=== PATIENT | female | born 1930 | race Caucasian/White ===

== ENCOUNTER 2017-10-02 19:02 | Emergency (ER) | payer MEDICARE, BC ==
--- NOTE | 2017-10-02 20:15 | EDM.PDOC ---
ED HPI GENERAL MEDICAL PROBLEM - General Chief Complaint: Head Injury Stated Complaint: fall high blood pressure Time Seen by Provider: 10/02/17 19:46 Source of Information: Reports: Patient, Family, Senior Living Records History Limitations: Reports: Altered Mental Status - History of Present Illness INITIAL COMMENTS - FREE TEXT/NARRATIVE: Patient is a 87-year-old female presents the ED with family with concerns of falling earlier this afternoon hitting her head. This occurred approximately 1: 30. Patient was getting out of a chair and fell forward. Unsure if any LOC since it was not witnessed. Patient does have a history of Alzheimer's dementia and is acting appropriate per family. Patient denies any headache at this point. Family is concerned about the hematoma to the forehead thus prompting evaluation in ED. Again patient has been acting appropriately. She is on no anticoagulants. Family is also concerned of elevated blood pressure. Readings obtained at the long-term where higher then normally. She has been ambulating normally with no issues since fall. - Related Data Allergies Allergy/AdvReac Type Severity Reaction Status Date / Time No Known Allergies Allergy Verified 10/02/17 19:28 Home Meds: Home Meds Calcium Carb/Vitamin D3/Vit K1 [Viactiv Soft Chew Tablet] 1 each PO BID [History] Fish Oil/[place]-3 Fatty Acids [Fish Oil] 1,000 each PO BID 12/28/13 [History] Glimepiride 4 mg PO DAILY 12/28/13 [History] Lutein/Minerals/Vit A,C & E [Ocuvite] 1 tab PO DAILY 12/28/13 [History] Pravastatin [Pravachol] 20 mg PO BEDTIME 12/28/13 [History] Triamterene/Hydrochlorothiazid [Triamterene-HCTZ 37.5-25 MG] 0.5 tab PO DAILY [History] Valsartan/Hydrochlorothiazide [Diovan HCTZ 160-25 MG] 160 mg PO DAILY 12/28/13 [ History] metFORMIN [Glucophage] 1,000 mg PO BID 12/28/13 [History] Acetaminophen [Tylenol] 650 mg PO BID 09/09/14 [History] Aspirin [Ecotrin] 81 mg PO DAILY 09/09/14 [History] Metoprolol Succinate [Toprol Xl] 100 mg PO DAILY 01/26/15 [History] Multivitamin [Multi Vitamin Daily] 1 tab PO DAILY 09/09/14 [History] Insulin Glarg,Human.Rec.Analog [LantUS Solostar] 6 units SUBCUT BEDTIME [History] Acetaminophen 650 mg PO DAILY PRN 06/24/16 [History] Linagliptin [Tradjenta] 5 mg PO DAILY 06/24/16 [History] Lactobacillus Acidophilus [Acidophilus] 1 tab PO TID 10/02/17 [History] Menthol/Zinc Oxide [Calmoseptine] 1 applic TOP BID 10/02/17 [History] QUEtiapine Fumarate [Seroquel] 50 mg PO BID 10/02/17 [History] Vancomycin 125 mg PO TID 10/02/17 [History] Past Medical History HEENT History: Reports: Glaucoma, Other (See Below) Other HEENT History: dry eyes Cardiovascular History: Reports: High Cholesterol, Hypertension Gastrointestinal History: Reports: Other (See Below) Other Gastrointestinal History: c diff Musculoskeletal History: Reports: Osteoporosis Neurological History: Reports: CVA, TIA Psychiatric History: Reports: Alzheimers Disease, Dementia, Depression Endocrine/Metabolic History: Reports: Diabetes, Type II Social & Family History - Tobacco Use Smoking Status *Q: Former Smoker Used Tobacco, but Quit: Yes Month Tobacco Last Used: 40 years Second Hand Smoke Exposure: No - Caffeine Use Caffeine Use: Reports: Coffee - Alcohol Use Days Per Week of Alcohol Use: 0 - Recreational Drug Use Recreational Drug Use: No ED ROS GENERAL - Review of Systems Review Of Systems: See Below Respiratory: Reports: No Symptoms Cardiovascular: Reports: No Symptoms GI/Abdominal: Reports: No Symptoms Musculoskeletal: Reports: No Symptoms Neurological: Reports: No Symptoms Psychiatric: Reports: Agitation (normal. ), Confusion (normal) ED EXAM, HEAD INJURY - Physical Exam Exam: See Below Exam Limited By: No Limitations General Appearance: Alert, WD/WN, No Apparent Distress Head: Facial Ecchymosis, Facial Swelling, Other (Hematoma noted to the forehead with no bony abnormalities noted.). No: Scalp Hematoma, Scalp Tenderness Nexus Criteria: Altered Level of Consciousness (Alzheimer's dementia patient). No: Posterior, Midline Cervical Tenderness, Focal Neurological Deficit, Painful Distraction Injuries Eyes: Bilateral Eye: EOMI, PERRL Ears: Hearing Grossly Normal Nose: Normal Inspection Throat/Mouth: Normal Voice, No Airway Compromise, Other (Moist oromucosa) Neck: Non-Tender, Full Range of Motion, Normal Alignment, Normal Inspection Respiratory: No Respiratory Distress, Lungs Clear, Normal Breath Sounds, No Accessory Muscle Use, Chest Non-Tender Cardiovascular: Normal Peripheral Pulses, Regular Rate, Rhythm GI/Abdominal Exam: Normal Bowel Sounds, Soft, Non-Tender, No Organomegaly, No Distention Back Exam: Normal Inspection. 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 No: Oriented x 3 (Mentation is normal for patient per family) Skin: Normal Color, Warm/Dry Course - Vital Signs Last Recorded V/S: Last Vital Signs Temp 98 F 10/02/17 19:20 Pulse 88 10/02/17 19:20 Resp 18 10/02/17 19:20 BP 184/91 H 10/02/17 19:20 Pulse Ox 99 10/02/17 19:20 - Orders/Labs/Meds Orders: Active Orders 24 hr Category Date Time Status Head wo Cont [CT] Stat Exams 10/02/17 20:03 Taken - Re-Assessments/Exams Free Text/Narrative Re-Assessment/Exam: Patients family are wishing to have an CT of the head to ensure no acute bony abnormalities. Agree with requests. Family and myself agree no labs or studies to be obtained. While blood pressure readings were being obtained patient was complaining of pain to her arm thus flexing her biceps. She would not listen with asking to relax. Blood pressure with admission to the ED is lower than it was at the long-term. It is trending downward. Family has no more concerns at this point. CT of the head impression: Forehead scalp swelling and hematoma. No radiopaque foreign body. No underlying acute calvarial fracture. No evidence for acute transcortical infarct, acute intracranial hemorrhage, or mass effect. Will discharge patient home with instructions as documented. Departure - Departure Time of Disposition: 21:28 Disposition: Home, Self-Care 01 Condition: Good Clinical Impression: Scalp hematoma Qualifiers: Encounter type: initial encounter Qualified Code(s): S00.03XA - Contusion of scalp, initial encounter - Discharge Information Instructions: Facial or Scalp Contusion, [id number], Hematoma, [id number] Referrals: Jonny Keith MD [Primary Care Provider] - Forms: ED Department Discharge Additional Instructions: As discussed CT the head did not reveal any acute bony abnormalities or intracranial abnormalities. Forehead scalp swelling and hematoma present. Treatment at this point will be symptomatic care including applying ice to the affected area as needed throughout the course today. May utilize Tylenol for any pain. Monitor for any mentation changes, seizures, nausea vomiting, or focal neurological deficits. If so please call 911 and return back to the ED. - My Orders Last 24 Hours: My Active Orders 10/02/17 20:03 Head wo Cont [CT] Stat - Assessment/Plan Last 24 Hours: My Active Orders 10/02/17 20:03 Head wo Cont [CT] Stat
[2017-10-02 22:07] VITALS: BP 156/85
--- NOTE | 2017-10-03 08:25 | CT ---
Head CT Technique: Multiple axial sections through the brain were obtained. Intravenous contrast was not utilized. Comparison: Prior head CT study of 06/24/16. Soft tissue hematoma and swelling seen within the scalp within the forehead. Findings: Ventricles along with basal cisterns and sulci over the convexities are moderately prominent. Mild diminished density is noted within the periventricular and subcortical white matter compatible with small vessel ischemic demyelination change. No evidence of intracranial hemorrhage. No midline shift or mass effect is seen. Atherosclerotic calcification is seen within the vertebral vessels and within the carotid siphon. Mucosal thickening is seen within the right maxillary sinus and ethmoid sinuses. Retention cyst is noted within the left maxillary sinus. No acute calvarial abnormality is seen. Impression: 1. Soft tissue swelling and hematoma within the frontal scalp. 2. Senescent change as described above. 3. Chronic sinus findings which are stable from prior head CT. 3. No acute intracranial abnormality is seen. No skull fracture is seen. Diagnostic code #2 I agree with preliminary report issued by [employer] ([employer] preliminary report dictated on 10/02/17, 10:11 PM Central Time)
== END 2017-10-02 22:26 | disposition home or self-care (01) ==
LOC: JD.ED 19:02
DX: S00.03XA Contusion of scalp, initial encounter (principal); E78.00 Pure hypercholesterolemia, unspecified; E11.9 Type 2 diabetes mellitus without complications; I10 Essential (primary) hypertension; G30.9 Alzheimer's disease, unspecified; F02.80 Dementia in other diseases classified elsewhere, unspecified severity, without behavioral disturbance, psychotic disturbance, mood disturbance, and anxiety; Z79.84 Long term (current) use of oral hypoglycemic drugs; Z79.899 Other long term (current) drug therapy; Z86.73 Personal history of transient ischemic attack (TIA), and cerebral infarction without residual deficits; Z87.891 Personal history of nicotine dependence; Z86.19 Personal history of other infectious and parasitic diseases; Z79.82 Long term (current) use of aspirin; W07.XXXA Fall from chair, initial encounter
CPT/HCPCS: 70450; 70450-26; 99283; 99285-25

== ENCOUNTER 2018-02-11 11:53 | Inpatient (IN) | payer MEDICARE, BC, MEDICAID ==
[2018-02-11] MEDS ORDERED: Sodium Chloride 0.9% 250 ML IV ONE (12:41)
[2018-02-11] MEDS ORDERED: Sodium Chloride 0.9% 10 ML Syringe FLUSH PRN (12:41)
[2018-02-11] MEDS ORDERED: Sodium Chloride 0.9% 1,000 ML IV SCH (12:45)
--- NOTE | 2018-02-11 12:45 | EDM.PDOC ---
ED HPI GENERAL MEDICAL PROBLEM - General Chief Complaint: Cardiovascular Problem Stated Complaint: RAPID HEART RATE Time Seen by Provider: 02/11/18 12:32 Source of Information: Reports: Patient, [facility] Records History Limitations: Reports: Other (Dementia) - History of Present Illness INITIAL COMMENTS - FREE TEXT/NARRATIVE: Patient is a 87-year-old female with history dementia who presents to the ED with concerns of a fast heart rate. She is a resident at [facility]. CODE STATUS DNR. - Related Data Allergies Allergy/AdvReac Type Severity Reaction Status Date / Time No Known Allergies Allergy Verified 10/02/17 19:28 Home Meds: Home Meds Calcium Carb/Vitamin D3/Vit K1 [Viactiv Soft Chew Tablet] 1 each PO BID [History] Fish Oil/[place]-3 Fatty Acids [Fish Oil] 1,000 each PO BID 12/28/13 [History] Glimepiride 4 mg PO DAILY 12/28/13 [History] Lutein/Minerals/Vit A,C & E [Ocuvite] 1 tab PO DAILY 12/28/13 [History] Pravastatin [Pravachol] 20 mg PO BEDTIME 12/28/13 [History] Triamterene/Hydrochlorothiazid [Triamterene-HCTZ 37.5-25 MG] 0.5 tab PO DAILY [History] Valsartan/Hydrochlorothiazide [Diovan HCTZ 160-25 MG] 160 mg PO DAILY 12/28/13 [ History] Acetaminophen [Tylenol] 650 mg PO BID 09/09/14 [History] Aspirin [Ecotrin] 162 mg PO DAILY 09/09/14 [History] Metoprolol Succinate [Toprol Xl] 100 mg PO DAILY 09/09/14 [History] Multivitamin [Multi Vitamin Daily] 1 tab PO DAILY 09/09/14 [History] Insulin Glarg,Human.Rec.Analog [LantUS Solostar] 6 units SUBCUT BEDTIME [History] Linagliptin [Tradjenta] 5 mg PO DAILY 06/24/16 [History] Lactobacillus Acidophilus [Acidophilus] 1 tab PO TID 10/02/17 [History] QUEtiapine Fumarate [Seroquel] 50 mg PO BID 10/02/17 [History] Cyanocobalamin (Vitamin B-12) [Vitamin B-12] 500 mcg PO DAILY 02/11/18 [History] metFORMIN [Glucophage XR] 1,000 mg PO BID 02/11/18 [History] traMADol [Ultram] 50 mg PO Q6H PRN 02/11/18 [History] Past Medical History HEENT History: Reports: Glaucoma, Other (See Below) Other HEENT History: dry eyes Cardiovascular History: Reports: High Cholesterol, Hypertension Gastrointestinal History: Reports: Other (See Below) Other Gastrointestinal History: c diff Musculoskeletal History: Reports: Osteoporosis Neurological History: Reports: CVA, TIA Psychiatric History: Reports: Alzheimers Disease, Dementia, Depression Endocrine/Metabolic History: Reports: Diabetes, Type II Social & Family History - Tobacco Use Smoking Status *Q: Never Smoker - Caffeine Use Caffeine Use: Reports: Coffee, Tea - Recreational Drug Use Recreational Drug Use: No ED ROS GENERAL - Review of Systems Review Of Systems: See Below (Unsure accuracy.) Constitutional: Reports: Malaise, Weakness, Decreased Appetite. Denies: Fever HEENT: Reports: No Symptoms Respiratory: Reports: No Symptoms Cardiovascular: Reports: No Symptoms GI/Abdominal: Reports: No Symptoms Musculoskeletal: Reports: No Symptoms Neurological: Reports: Confusion ED EXAM, GENERAL - Physical Exam Exam: See Below Exam Limited By: Other (Dementia) General Appearance: Alert, No Apparent Distress Eye Exam: Bilateral Eye: EOMI, Normal Inspection, PERRL Ears: Hearing Grossly Normal Nose: Normal Inspection Throat/Mouth: Normal Voice, No Airway Compromise, Other (Mildly dry oromucosa) Neck: Normal Inspection, Supple Respiratory/Chest: No Respiratory Distress, Lungs Clear, Normal Breath Sounds, No Accessory Muscle Use, Chest Non-Tender Cardiovascular: Normal Peripheral Pulses, No Murmur (Obvious), Tachycardia Peripheral Pulses: 4+: Radial (L), Radial (R) GI/Abdominal: Normal Bowel Sounds, Soft, Non-Tender, No Organomegaly, No Distention Back Exam: Normal Inspection Extremities: Normal Inspection, Normal Range of Motion, Non-Tender, No Pedal Edema Neurological: Alert, CN II-XII Intact, Normal Cognition, No Motor/Sensory Deficits Psychiatric: Normal Affect, Normal Mood Skin Exam: Warm, Dry, Intact, Normal Color, No Rash Course - Vital Signs Last Recorded V/S: Last Vital Signs Temp 98.6 F 06/30/18 20:00 Pulse 131 H 02/11/18 23:00 Resp 17 02/11/18 20:00 BP 105/60 02/11/18 23:00 Pulse Ox 97 02/11/18 20:00 - Orders/Labs/Meds Orders: Active Orders 24 hr Category Date Time Status Peripheral IV Care [RC] Q2HR Care 02/11/18 12:41 Active Chest 1V Frontal [CR] Stat Exams 02/11/18 12:40 Taken UA W/MICROSCOPIC [URIN] Stat Lab 02/11/18 12:40 Ordered Sodium Chloride 0.9% [Saline Flush] Med 02/11/18 12:41 Active 10 ml FLUSH ASDIRECTED PRN Peripheral IV Insertion Adult [OM.PC] Routine Oth 02/11/18 12:41 Ordered Medication Orders Aspirin (Halfprin) 162 mg PO DAILY [facility] Dextrose/Water (Dextrose 50% In Water) 50 ml IVPUSH ASDIRECTED PRN PRN Reason: Hypoglycemia Enoxaparin Sodium (Lovenox) 55 mg SUBCUT QPM [facility] Glimepiride (Glimepiride) 4 mg PO WITHBREAKFAST [facility] Amiodarone HCl/Dextrose (Nexterone In Dextrose 360 Mg/200 Ml) 360 mg in 200 mls @ 33.333 mls/hr IV ASDIRECTED [facility]; Protocol Last Admin: 02/11/18 21:04 Dose: 33.333 mls/hr Insulin Aspart (Novolog) 0 unit SUBCUT QIDACANDBED [facility]; Protocol Last Admin: 02/11/18 21:08 Dose: Not Given Metoprolol Tartrate (Lopressor) 5 mg IVPUSH Q6H PRN PRN Reason: heart rate >120 Multivitamins (Thera) 1 each PO DAILY [facility] Non-Formulary Medication (Calcium Carb/Vitamin D3/Vit K1 [Viactiv Soft Chew]) 1 each PO BID [facility] Quetiapine Fumarate (Seroquel) 50 mg PO BID [facility] Last Admin: 02/11/18 20:52 Dose: 50 mg Saccharomyces Boulardii (Florastor) 250 mg PO TID [facility] Last Admin: 02/11/18 20:51 Dose: 250 mg Simvastatin (Zocor) 10 mg PO BEDTIME [facility] Last Admin: 02/11/18 20:51 Dose: 10 mg Sodium Chloride (Saline Flush) 10 ml FLUSH ASDIRECTED PRN PRN Reason: Keep Vein Open Last Admin: 02/11/18 12:55 Dose: 10 ml Tramadol HCl (Ultram) 50 mg PO Q6H PRN PRN Reason: Pain Labs: Laboratory Tests 02/11/18 02/11/18 02/11/18 Range/Units 12:10 12:10 12:10 WBC 8.87 (3.98-10.04) K/mm3 RBC 4.75 (3.98-5.22) M/mm3 Hgb 12.4 (11.2-15.7) gm/L Hct 38.8 (34.1-44.9) % MCV 81.7 (79.4-94.8) fl MCH 26.1 (25.6-32.2) pg MCHC 32.0 L (32.2-35.5) g/dl RDW Std Deviation 44.9 (36.4-46.3) fL Plt Count 260 (182-369) K/mm3 MPV 11.1 (9.4-12.3) fl Neutrophils % (Manual) 62 H (40-60) % Band Neutrophils % 1 (0-10) % Lymphocytes % (Manual) 30 (20-40) % Atypical Lymphs % 0 % Immat Monocytes % (Man) 0 Monocytes % (Manual) 6 (2-10) % Eosinophils % (Manual) 1 (0.7-5.8) % Basophils % (Manual) 0 L (0.1-1.2) Metamyelocytes % 0 Myelocytes % 0 Promyelocytes % 0 Blast Cells % 0 Plasma Cell % (Manual) 0 Nucleated RBCs 0.0 % Platelet Estimate Adequate RBC Morph Comment Normal D-Dimer, Quantitative (0.19-0.50) mg/L Sodium 141 (136-145) mEq/L Potassium 4.0 (3.5-5.1) mEq/L Chloride 103 (98-107) mEq/L Carbon Dioxide 23 (21-32) mEq/L Anion Gap 19.0 H (5-15) BUN 39 H (7-18) mg/dL Creatinine 1.1 H (0.55-1.02) mg/dL Est Cr Clr Drug Dosing 30.93 mL/min Estimated GFR (MDRD) 47 (>60) mL/min BUN/Creatinine Ratio 35.5 H (14-18) Glucose 196 H (83-115) mg/dL Calcium 10.0 (8.5-10.1) mg/dL Magnesium 1.4 L (1.8-2.4) mg/dl Total Bilirubin 0.3 (0.2-1.0) mg/dL AST 24 (15-37) U/L ALT 37 (14-59) U/L Alkaline Phosphatase 46 (46-116) U/L Troponin I < 0.017 (0.00-0.056) ng/mL C-Reactive Protein < 0.2 (<1.0) mg/dL Total Protein 7.7 (6.4-8.2) g/dl Albumin 3.8 (3.4-5.0) g/dl Globulin 3.9 gm/dL Albumin/Globulin Ratio 1.0 (1-2) TSH 3rd Generation 1.743 (0.358-3.74) uIU/mL Mycoplasma pneumon IgM Negative (NEGATIVE) 02/11/18 Range/Units 15:30 WBC (3.98-10.04) K/mm3 RBC (3.98-5.22) M/mm3 Hgb (11.2-15.7) gm/L Hct (34.1-44.9) % MCV (79.4-94.8) fl MCH (25.6-32.2) pg MCHC (32.2-35.5) g/dl RDW Std Deviation (36.4-46.3) fL Plt Count (182-369) K/mm3 MPV (9.4-12.3) fl Neutrophils % (Manual) (40-60) % Band Neutrophils % (0-10) % Lymphocytes % (Manual) (20-40) % Atypical Lymphs % % Immat Monocytes % (Man) Monocytes % (Manual) (2-10) % Eosinophils % (Manual) (0.7-5.8) % Basophils % (Manual) (0.1-1.2) Metamyelocytes % Myelocytes % Promyelocytes % Blast Cells % Plasma Cell % (Manual) Nucleated RBCs % Platelet Estimate RBC Morph Comment D-Dimer, Quantitative 0.79 H (0.19-0.50) mg/L Sodium (136-145) mEq/L Potassium (3.5-5.1) mEq/L Chloride (98-107) mEq/L Carbon Dioxide (21-32) mEq/L Anion Gap (5-15) BUN (7-18) mg/dL Creatinine (0.55-1.02) mg/dL Est Cr Clr Drug Dosing mL/min Estimated GFR (MDRD) (>60) mL/min BUN/Creatinine Ratio (14-18) Glucose (83-115) mg/dL Calcium (8.5-10.1) mg/dL Magnesium (1.8-2.4) mg/dl Total Bilirubin (0.2-1.0) mg/dL AST (15-37) U/L ALT (14-59) U/L Alkaline Phosphatase (46-116) U/L Troponin I (0.00-0.056) ng/mL C-Reactive Protein (<1.0) mg/dL Total Protein (6.4-8.2) g/dl Albumin (3.4-5.0) g/dl Globulin gm/dL Albumin/Globulin Ratio (1-2) TSH 3rd Generation (0.358-3.74) uIU/mL Mycoplasma pneumon IgM (NEGATIVE) Meds: Medications Generic Name Dose Route Start Last Admin Trade Name Freq PRN Reason Stop Dose Admin Aspirin 162 mg 02/12/18 09:00 Halfprin PO DAILY [facility] Dextrose/Water 50 ml 02/11/18 19:02 Dextrose 50% In Water IVPUSH ASDIRECTED PRN Hypoglycemia Enoxaparin Sodium 55 mg 02/12/18 18:00 Lovenox SUBCUT QPM [facility] Glimepiride 4 mg 02/12/18 07:00 Glimepiride PO WITHBREAKFAST [facility] Amiodarone HCl/Dextrose 360 mg in 200 mls @ 33.333 mls/hr 02/11/18 20:30 21:04 Nexterone In Dextrose 360 Mg/200 Ml IV 33.333 mls/hr ASDIRECTED [facility] Administration Protocol Insulin Aspart 0 unit 02/11/18 22:00 02/11/18 21:08 Novolog SUBCUT Not Given QIDACANDBED [facility] Protocol Metoprolol Tartrate 5 mg 02/11/18 20:12 Lopressor IVPUSH Q6H PRN heart rate >120 Multivitamins 1 each 02/12/18 09:00 Thera PO DAILY [facility] Non-Formulary Medication 1 each 02/11/18 21:00 Calcium Carb/Vitamin D3/Vit K1 [Viactiv Soft Chew] PO BID [facility] Quetiapine Fumarate 50 mg 02/11/18 21:00 02/11/18 20:52 Seroquel PO 50 mg BID [facility] Administration Saccharomyces Boulardii 250 mg 02/11/18 21:00 02/11/18 20:51 Florastor PO 250 mg TID [facility] Administration Simvastatin 10 mg 02/11/18 21:00 02/11/18 20:51 Zocor PO 10 mg BEDTIME [facility] Administration Sodium Chloride 10 ml 02/11/18 12:41 02/11/18 12:55 Saline Flush FLUSH 10 ml ASDIRECTED PRN Administration Keep Vein Open Tramadol HCl 50 mg 02/11/18 18:55 Ultram PO Q6H PRN Pain Discontinued Medications Generic Name Dose Route Start Last Admin Trade Name Freq PRN Reason Stop Dose Admin Diltiazem HCl 10 mg 02/11/18 13:46 02/11/18 16:20 Diltiazem IVPUSH 02/11/18 13:47 10 mg ONETIME ONE Administration Diltiazem HCl Confirm 02/11/18 16:13 02/11/18 16:47 Diltiazem Administered 02/11/18 16:14 Not Given Dose 125 mg .ROUTE .STK-MED ONE Enoxaparin Sodium 55 mg 02/12/18 09:00 Lovenox SUBCUT DAILY [facility] Enoxaparin Sodium 55 mg 02/11/18 21:51 02/11/18 22:04 Lovenox SUBCUT 02/11/18 21:52 55 mg ONETIME ONE Administration Sodium Chloride 1,000 mls @ 150 mls/hr 02/11/18 12:45 Normal Saline IV ASDIRECTED [facility] Sodium Chloride 250 mls @ 999 mls/hr 02/11/18 12:41 02/11/18 12:55 Normal Saline IV 02/11/18 12:56 999 mls/hr .BOLUS ONE Administration Diltiazem HCl 125 mg/ Sodium 125 mls @ 10 mls/hr 02/11/18 13:47 02/11/18 18: 45 Chloride IV 02/12/18 02:16 15 mg/hr TITRATE ONE 15 mls/hr Titration Protocol 10 MG/HR Magnesium Sulfate 2 gm/ Premix 50 mls @ 25 mls/hr 02/11/18 13:48 02/11/18 14: 33 IV 02/11/18 15:47 25 mls/hr ONETIME ONE Administration Amiodarone HCl/Dextrose 150 mg 100 mls @ 600 mls/hr 02/11/18 20:30 02/11/18 20:50 / Premix IV 02/11/18 20:39 600 mls/hr NOW ONE Administration Metoprolol Succinate 50 mg 02/12/18 09:00 Toprol Xl PO BIDPC [facility] - Re-Assessments/Exams Free Text/Narrative Re-Assessment/Exam: IV established with normal saline 250 mls bolus and normal saline 150 mL per hour. Initial labs and studies will include CBC, chem 14, CRP, magnesium, troponin, TSH, UA, chest x-ray one view, and EKG. EKG reveals a flutter with 2-1 conduction at a rate of 144. No ischemic changes. CXR: reviewed with Dr. Godinez. Mild pulmonary congestion with no infiltrates noted. Compared with previous CXR Jun 2016. 1345: Labs reviewed: CBC essentially normal. Sodium 141, potassium 4.0, cr 1.1, Mg 1.4, troponin within normal limits, and CRP within normal limits. TSH 1.743. UA has been ordered but not obtained. I have ordered magnesium 2 g IV. Will await for magnesium to be fully administered before starting the Cardizem. I have discussed this with Kristel BRENNAN. DDimer is pending. 02/11/18 16:02 I did speak with Dr. Silva. HR remains 139. BP 104/systolic. Recommended proceeding with cardizem bolus. Patient has received 700 mls of fluid. DDIMER: 0.79. Age appropriate. 02/11/18 16:34 10 mg Cardizem bolus did not decrease the patient's heart rate. Will start the patient on Cardizem 10 mg an hour. Do not want to administer any additional boluses of Cardizem since the patient's blood pressure still remains 104/s. 02/11/18 16:[address] Silva. She requests adding mycoplasma to blood work. This has been ordered. 02/11/18 17:00 Dr. Silva has evaluated the patient. She has accepted the patient. Admit to the ICU. MCG to be completed. Departure - Departure Time of Disposition: 16:02 Disposition: Admitted As Inpatient 68 Condition: Good Clinical Impression: Atrial flutter by electrocardiogram - My Orders Last 24 Hours: My Active Orders 02/11/18 12:40 Chest 1V Frontal [CR] Stat UA W/MICROSCOPIC [URIN] Stat 02/11/18 12:41 Peripheral IV Care [RC] Q2HR Sodium Chloride 0.9% [Saline Flush] 10 ml FLUSH ASDIRECTED PRN Peripheral IV Insertion Adult [OM.PC] Routine - Assessment/Plan Last 24 Hours: My Active Orders 02/11/18 12:40 Chest 1V Frontal [CR] Stat UA W/MICROSCOPIC [URIN] Stat 02/11/18 12:41 Peripheral IV Care [RC] Q2HR Sodium Chloride 0.9% [Saline Flush] 10 ml FLUSH ASDIRECTED PRN Peripheral IV Insertion Adult [OM.PC] Routine
[2018-02-11] MEDS ORDERED: Diltiazem 25 MG/5 ML SDV IVPUSH ONE (13:46)
[2018-02-11] MEDS ORDERED: Diltiazem 125 MG in Sodium Chloride 0.9% 100 ML IV ONE (13:47)
[2018-02-11] MEDS ORDERED: Magnesium Sulfate/Water 2 GM in Premix Bag 1 BAG IV ONE (13:48)
[2018-02-11] MEDS ORDERED: Diltiazem 125 MG/25 ML SDV ONE (16:13)
--- NOTE | 2018-02-11 18:55 | PCM.HP ---
H&P History of Present Illness - General Date of Service: 02/11/18 Admit Problem/Dx: Admission Diagnosis/Problem Admission Diagnosis/Problem Atrial fibrillation with rapid ventricular response Source of Information: Provider History Limitations: Reports: Other (Limited provided by SNF, patient is unable to provide.) - History of Present Illness Initial Comments - Free Text/Narative: 87 year old female residing at [facility] presents with rapid heart rate; ECG documents NCT, likely A Flutter which had minimal response to Cardizem bolus in the ED. Patient complained of malaise and generalized weakness. She admitted to decreased in appetite; denied CP, SOB, presyncopal or syncopal episode. She will be admitted to the ICU; code status is DNR/DNI. Onset of Symptoms: Reports: Sudden Symptom Onset Date: 02/11/18 Duration of Symptoms: Reports: Hour(s):, Getting Worse Location: Reports: Chest Severity: Moderate Improves with: Reports: Medication Worsens with: Reports: None Associated Symptoms: Reports: Loss of Appetite, Malaise, Shortness of Breath, Weakness - Related Data Allergies/Adverse Reactions: Allergies Allergy/AdvReac Type Severity Reaction Status Date / Time No Known Allergies Allergy Verified 10/02/17 19:28 Home Medications: Home Meds Calcium Carb/Vitamin D3/Vit K1 [Viactiv Soft Chew Tablet] 1 each PO BID [History] Fish Oil/Sterling-3 Fatty Acids [Fish Oil] 1,000 each PO BID 12/28/13 [History] Glimepiride 4 mg PO DAILY 12/28/13 [History] Lutein/Minerals/Vit A,C & E [Ocuvite] 1 tab PO DAILY 12/28/13 [History] Pravastatin [Pravachol] 20 mg PO BEDTIME 12/28/13 [History] Triamterene/Hydrochlorothiazid [Triamterene-HCTZ 37.5-25 MG] 0.5 tab PO DAILY [History] Valsartan/Hydrochlorothiazide [Diovan HCTZ 160-25 MG] 160 mg PO DAILY 12/28/13 [ History] Acetaminophen [Tylenol] 650 mg PO BID 09/09/14 [History] Aspirin [Ecotrin] 162 mg PO DAILY 09/09/14 [History] Metoprolol Succinate [Toprol Xl] 100 mg PO DAILY 09/09/14 [History] Multivitamin [Multi Vitamin Daily] 1 tab PO DAILY 09/09/14 [History] Insulin Glarg,Human.Rec.Analog [LantUS Solostar] 6 units SUBCUT BEDTIME [History] Linagliptin [Tradjenta] 5 mg PO DAILY 06/24/16 [History] Lactobacillus Acidophilus [Acidophilus] 1 tab PO TID 10/02/17 [History] QUEtiapine Fumarate [Seroquel] 50 mg PO BID 10/02/17 [History] Cyanocobalamin (Vitamin B-12) [Vitamin B-12] 500 mcg PO DAILY 02/11/18 [History] metFORMIN [Glucophage XR] 1,000 mg PO BID 02/11/18 [History] traMADol [Ultram] 50 mg PO Q6H PRN 02/11/18 [History] Past Medical History HEENT History: Reports: Glaucoma, Other (See Below) Other HEENT History: dry eyes Cardiovascular History: Reports: High Cholesterol, Hypertension Gastrointestinal History: Reports: Other (See Below) Other Gastrointestinal History: c diff Musculoskeletal History: Reports: Osteoporosis Neurological History: Reports: CVA, TIA Psychiatric History: Reports: Alzheimers Disease, Dementia, Depression Endocrine/Metabolic History: Reports: Diabetes, Type II Social & Family History - Tobacco Use Smoking Status *Q: Never Smoker - Caffeine Use Caffeine Use: Reports: None, Coffee - Recreational Drug Use Recreational Drug Use: No H&P Review of Systems - Review of Systems: Review Of Systems: See Below General: Reports: Weakness, Decreased Appetite HEENT: Reports: No Symptoms Pulmonary: Reports: Shortness of Breath Cardiovascular: Reports: Palpitations Gastrointestinal: Reports: No Symptoms Genitourinary: Reports: No Symptoms Musculoskeletal: Reports: No Symptoms Skin: Reports: No Symptoms Psychiatric: Reports: Other (dementia) Neurological: Reports: No Symptoms Hematologic/Lymphatic: Reports: No Symptoms Immunologic: Reports: No Symptoms Exam - Exam Exam: See Below - Vital Signs Vital Signs: Last Vital Signs Temp 35.9 C 02/11/18 12:07 Pulse 141 H 02/11/18 12:07 Resp 19 02/11/18 16:20 BP 120/79 02/11/18 16:20 Pulse Ox 98 02/11/18 16:20 Weight: 55.157 kg - Exam Quality Assessment: Supplemental Oxygen General: Alert, Oriented, Cooperative HEENT: Conjunctiva Clear, EOMI, Pupils Equal, Pupils Reactive, PERRLA Neck: Trachea Midline Lungs: Normal Respiratory Effort Cardiovascular: Regular Rate, Irregular Rhythm, Tachycardia GI/Abdominal Exam: Normal Bowel Sounds, Soft, Non-Tender, No Organomegaly, No Distention (Female) Exam: Deferred Rectal (Female) Exam: Deferred Back Exam: Normal Inspection Extremities: Normal Inspection, Non-Tender, No Pedal Edema Skin: Warm Neurological: Cranial Nerves Intact, Normal Speech Neuro Extensive - Mental Status: Alert Neuro Extensive - Motor, Sensory, Reflexes: CN II-XII Intact Psychiatric: Alert - Patient Data Lab Results Last 24 hrs: Laboratory Results - last 24 hr 02/11/18 02/11/18 02/11/18 Range/Units 12:10 12:10 12:10 WBC 8.87 (3.98-10.04) K/mm3 RBC 4.75 (3.98-5.22) M/mm3 Hgb 12.4 (11.2-15.7) gm/L Hct 38.8 (34.1-44.9) % MCV 81.7 (79.4-94.8) fl MCH 26.1 (25.6-32.2) pg MCHC 32.0 L (32.2-35.5) g/dl RDW Std Deviation 44.9 (36.4-46.3) fL Plt Count 260 (182-369) K/mm3 MPV 11.1 (9.4-12.3) fl Neutrophils % (Manual) 62 H (40-60) % Band Neutrophils % 1 (0-10) % Lymphocytes % (Manual) 30 (20-40) % Atypical Lymphs % 0 % Immat Monocytes % (Man) 0 Monocytes % (Manual) 6 (2-10) % Eosinophils % (Manual) 1 (0.7-5.8) % Basophils % (Manual) 0 L (0.1-1.2) Metamyelocytes % 0 Myelocytes % 0 Promyelocytes % 0 Blast Cells % 0 Plasma Cell % (Manual) 0 Nucleated RBCs 0.0 % Platelet Estimate Adequate RBC Morph Comment Normal D-Dimer, Quantitative (0.19-0.50) mg/L Sodium 141 (136-145) mEq/L Potassium 4.0 (3.5-5.1) mEq/L Chloride 103 (98-107) mEq/L Carbon Dioxide 23 (21-32) mEq/L Anion Gap 19.0 H (5-15) BUN 39 H (7-18) mg/dL Creatinine 1.1 H (0.55-1.02) mg/dL Est Cr Clr Drug Dosing 30.93 mL/min Estimated GFR (MDRD) 47 (>60) mL/min BUN/Creatinine Ratio 35.5 H (14-18) Glucose 196 H (83-115) mg/dL Calcium 10.0 (8.5-10.1) mg/dL Magnesium 1.4 L (1.8-2.4) mg/dl Total Bilirubin 0.3 (0.2-1.0) mg/dL AST 24 (15-37) U/L ALT 37 (14-59) U/L Alkaline Phosphatase 46 (46-116) U/L Troponin I < 0.017 (0.00-0.056) ng/mL C-Reactive Protein < 0.2 (<1.0) mg/dL Total Protein 7.7 (6.4-8.2) g/dl Albumin 3.8 (3.4-5.0) g/dl Globulin 3.9 gm/dL Albumin/Globulin Ratio 1.0 (1-2) TSH 3rd Generation 1.743 (0.358-3.74) uIU/mL Mycoplasma pneumon IgM Negative (NEGATIVE) 02/11/18 Range/Units 15:30 WBC (3.98-10.04) K/mm3 RBC (3.98-5.22) M/mm3 Hgb (11.2-15.7) gm/L Hct (34.1-44.9) % MCV (79.4-94.8) fl MCH (25.6-32.2) pg MCHC (32.2-35.5) g/dl RDW Std Deviation (36.4-46.3) fL Plt Count (182-369) K/mm3 MPV (9.4-12.3) fl Neutrophils % (Manual) (40-60) % Band Neutrophils % (0-10) % Lymphocytes % (Manual) (20-40) % Atypical Lymphs % % Immat Monocytes % (Man) Monocytes % (Manual) (2-10) % Eosinophils % (Manual) (0.7-5.8) % Basophils % (Manual) (0.1-1.2) Metamyelocytes % Myelocytes % Promyelocytes % Blast Cells % Plasma Cell % (Manual) Nucleated RBCs % Platelet Estimate RBC Morph Comment D-Dimer, Quantitative 0.79 H (0.19-0.50) mg/L Sodium (136-145) mEq/L Potassium (3.5-5.1) mEq/L Chloride (98-107) mEq/L Carbon Dioxide (21-32) mEq/L Anion Gap (5-15) BUN (7-18) mg/dL Creatinine (0.55-1.02) mg/dL Est Cr Clr Drug Dosing mL/min Estimated GFR (MDRD) (>60) mL/min BUN/Creatinine Ratio (14-18) Glucose (83-115) mg/dL Calcium (8.5-10.1) mg/dL Magnesium (1.8-2.4) mg/dl Total Bilirubin (0.2-1.0) mg/dL AST (15-37) U/L ALT (14-59) U/L Alkaline Phosphatase (46-116) U/L Troponin I (0.00-0.056) ng/mL C-Reactive Protein (<1.0) mg/dL Total Protein (6.4-8.2) g/dl Albumin (3.4-5.0) g/dl Globulin gm/dL Albumin/Globulin Ratio (1-2) TSH 3rd Generation (0.358-3.74) uIU/mL Mycoplasma pneumon IgM (NEGATIVE) Result Diagrams: 02/12/18 05:38 02/12/18 05:38 - Problem List (1) Atrial flutter by electrocardiogram SNOMED Code(s): 746298270 ICD Code: I48.92 - UNSPECIFIED ATRIAL FLUTTER Status: Acute Current Visit : Yes (2) Dementia SNOMED Code(s): 92502690 ICD Code: F03.90 - UNSPECIFIED DEMENTIA WITHOUT BEHAVIORAL DISTURBANCE Status: Acute Current Visit: No Qualifiers: Dementia type: Alzheimer's disease Alzheimer's disease onset: late-onset Dementia behavioral disturbance: with behavioral disturbance Qualified Code(s) : G30.1 - Alzheimer's disease with late onset (3) HTN, Benign hypertension SNOMED Code(s): 39111948 ICD Code: I10 - ESSENTIAL (PRIMARY) HYPERTENSION Status: Acute Current Visit: No Problem List Initiated/Reviewed/Updated: Yes Orders Last 24hrs: Active Orders 24 hr Category Date Time Status Patient Status [ADT] Routine ADT 02/11/18 17:46 Active Peripheral IV Care [RC] Q2HR Care 02/11/18 12:41 Active Chest 1V Frontal [CR] Stat Exams 02/11/18 12:40 Taken UA W/MICROSCOPIC [URIN] Stat Lab 02/11/18 12:40 Ordered Diltiazem 125 mg Med 02/11/18 13:47 Active Sodium Chloride 0.9% [Normal Saline] 100 ml IV TITRATE Sodium Chloride 0.9% [Normal Saline] 1,000 ml Med 02/11/18 12:45 Active IV ASDIRECTED Sodium Chloride 0.9% [Saline Flush] Med 02/11/18 12:41 Active 10 ml FLUSH ASDIRECTED PRN Peripheral IV Insertion Adult [OM.PC] Routine Oth 02/11/18 12:41 Ordered Medication Orders Sodium Chloride (Normal Saline) 1,000 mls @ 150 mls/hr IV ASDIRECTED KIKO Diltiazem HCl 125 mg/ Sodium (Chloride) 125 mls @ 10 mls/hr IV TITRATE ONE; Protocol Stop: 02/12/18 02:16 Last Titration: 02/11/18 18:45 Dose: 15 mg/hr, 15 mls/hr Admin: 02/11/18 16:48 Dose: 10 mg/hr, 10 mls/hr Sodium Chloride (Saline Flush) 10 ml FLUSH ASDIRECTED PRN PRN Reason: Keep Vein Open Last Admin: 02/11/18 12:55 Dose: 10 ml Assessment/Plan Comment:: Impression: NCT, asymptomatic; negative cardiac enzymes Hx of dementia, Alzheimer Hx of DM type 2 Chronic HTN HLD CVA C diff Depression Glaucoma Plan: IV Amiodarone BB IV as needed Begin oral AV nessa blockers Serial Cardiac markers Daily labs Home meds DVT/GI prophylaxis Lovenox, renal dose adjustment Consult PT/OT as needed.
[2018-02-11] MEDS ORDERED: 50% Dextrose in Water 50 ML Syringe IVPUSH PRN (19:02)
[2018-02-11] MEDS ORDERED: Metoprolol Tartrate 5 MG/5 ML SDV IVPUSH PRN (20:12)
[2018-02-11] MEDS ORDERED: Amiodarone 150 MG in Dextrose 5% in Water 100 ML IV ONE ×2 (20:15)
[2018-02-11] MEDS ORDERED: Amiodarone In Dextrose,Iso-Osm 150 MG in Premix Bag 1 BAG IV ONE ×2 (20:30)
[2018-02-11] MEDS: Simvastatin 10 MG Tab PO SCH (20:51)
[2018-02-11] MEDS: Saccharomyces Boulardii (Probiotic) 250 MG Cap PO SCH (20:51)
[2018-02-11] MEDS: QUEtiapine 25 MG Tab PO SCH (20:52)
[2018-02-11] MEDS ORDERED: PRAVASTATIN 20 MG PO SCH (21:00)
[2018-02-11] MEDS: Insulin Aspart 100 Units/ML 3 ML Pen SUBCUT SCH (21:08)
[2018-02-11] MEDS ORDERED: Enoxaparin 60 MG/0.6 ML Syringe SUBCUT ONE (21:51)
[2018-02-12] MEDS: Insulin Aspart 100 Units/ML 3 ML Pen SUBCUT SCH ×4 (06:22→21:20)
[2018-02-12] MEDS: Glimepiride 4 MG Tab PO SCH ×2 (06:40→06:45)
[2018-02-12] MEDS: Saccharomyces Boulardii (Probiotic) 250 MG Cap PO SCH ×3 (08:10→20:31)
[2018-02-12] MEDS: QUEtiapine 25 MG Tab PO SCH ×2 (08:12→20:31)
[2018-02-12] MEDS: Multivitamins,Therapeutic Tab PO SCH (08:12)
[2018-02-12] MEDS: Aspirin 81 MG Tab.EC PO SCH (08:13)
[2018-02-12] MEDS: Calcium Carbonate/Vitamin D3 600 MG-200 Units Tab PO SCH ×2 (08:26→20:31)
[2018-02-12] MEDS ORDERED: Enoxaparin 60 MG/0.6 ML Syringe SUBCUT SCH ×2 (09:00→18:00)
[2018-02-12] MEDS ORDERED: Metoprolol Succinate 50 MG Tab.ER PO SCH (09:00)
[2018-02-12] MEDS: Magnesium Sulfate/Water 2 GM in Premix Bag 1 BAG IV ONE ×2 (10:16→10:31)
[2018-02-12] MEDS ORDERED: Amiodarone 300 MG in Dextrose 5% in Water 100 ML IV ONE ×2 (18:19)
--- NOTE | 2018-02-12 18:24 | PCM.PN ---
- General Info Date of Service: 02/12/18 Functional Status: Reports: Tolerating Diet, Urinating - Review of Systems General: Reports: No Symptoms HEENT: Reports: No Symptoms Pulmonary: Reports: No Symptoms Cardiovascular: Reports: No Symptoms Gastrointestinal: Reports: No Symptoms Genitourinary: Reports: No Symptoms Musculoskeletal: Reports: No Symptoms Skin: Reports: No Symptoms Neurological: Reports: No Symptoms Psychiatric: Reports: No Symptoms - Patient Data Vitals - Most Recent: Last Vital Signs Temp 37.2 C 02/12/18 18:00 Pulse 120 H 02/12/18 14:00 Resp 20 02/12/18 18:00 BP 148/80 H 02/12/18 18:00 Pulse Ox 96 02/12/18 18:00 Weight - Most Recent: 55.157 kg I&O - Last 24 Hours: Intake & Output 02/12/18 02/12/18 02/12/18 06:59 14:59 22:59 Intake Total 420 0 793 Balance 420 0 793 Lab Results Last 24 Hours: Laboratory Results - last 24 hr 02/11/18 02/11/18 02/12/18 Range/Units 19:00 20:45 05:38 WBC (3.98-10.04) K/mm3 RBC (3.98-5.22) M/mm3 Hgb (11.2-15.7) gm/L Hct (34.1-44.9) % MCV (79.4-94.8) fl MCH (25.6-32.2) pg MCHC (32.2-35.5) g/dl RDW Std Deviation (36.4-46.3) fL Plt Count (182-369) K/mm3 MPV (9.4-12.3) fl Neut % (Auto) (34.0-71.1) % Lymph % (Auto) (19.3-51.7) % Aiken % (Auto) (4.7-12.5) % Eos % (Auto) (0.7-5.8) Baso % (Auto) (0.1-1.2) % Neut # (Auto) (1.56-6.13) K/mm3 Lymph # (Auto) (1.18-3.74) K/mm3 Aiken # (Auto) (0.24-0.36) K/mm3 Eos # (Auto) (0.04-0.36) K/mm3 Baso # (Auto) (0.01-0.08) K/mm3 Sodium 140 (136-145) mEq/L Potassium 3.6 (3.5-5.1) mEq/L Chloride 105 (98-107) mEq/L Carbon Dioxide 24 (21-32) mEq/L Anion Gap 14.6 (5-15) BUN 35 H (7-18) mg/dL Creatinine 1.0 (0.55-1.02) mg/dL Est Cr Clr Drug Dosing TNP Estimated GFR (MDRD) 53 (>60) mL/min BUN/Creatinine Ratio 35.0 H (14-18) Glucose 153 H (83-115) mg/dL POC Glucose 131 H (83-110) mg/dL Calcium 8.8 (8.5-10.1) mg/dL Magnesium 1.8 (1.8-2.4) mg/dl Troponin I < 0.017 (0.00-0.056) ng/mL NT-Pro-B Natriuret Pep (0-450) pg/mL MRSA (PCR) Negative 02/12/18 02/12/18 02/12/18 Range/Units 05:38 05:38 05:41 WBC 7.76 (3.98-10.04) K/mm3 RBC 4.12 (3.98-5.22) M/mm3 Hgb 10.7 L (11.2-15.7) gm/L Hct 33.6 L (34.1-44.9) % MCV 81.6 (79.4-94.8) fl MCH 26.0 (25.6-32.2) pg MCHC 31.8 L (32.2-35.5) g/dl RDW Std Deviation 44.2 (36.4-46.3) fL Plt Count 213 (182-369) K/mm3 MPV 11.1 (9.4-12.3) fl Neut % (Auto) 52.6 (34.0-71.1) % Lymph % (Auto) 36.2 (19.3-51.7) % Aiken % (Auto) 7.5 (4.7-12.5) % Eos % (Auto) 3.2 (0.7-5.8) Baso % (Auto) 0.4 (0.1-1.2) % Neut # (Auto) 4.08 (1.56-6.13) K/mm3 Lymph # (Auto) 2.81 (1.18-3.74) K/mm3 Aiken # (Auto) 0.58 H (0.24-0.36) K/mm3 Eos # (Auto) 0.25 (0.04-0.36) K/mm3 Baso # (Auto) 0.03 (0.01-0.08) K/mm3 Sodium (136-145) mEq/L Potassium (3.5-5.1) mEq/L Chloride (98-107) mEq/L Carbon Dioxide (21-32) mEq/L Anion Gap (5-15) BUN (7-18) mg/dL Creatinine (0.55-1.02) mg/dL Est Cr Clr Drug Dosing Estimated GFR (MDRD) (>60) mL/min BUN/Creatinine Ratio (14-18) Glucose (83-115) mg/dL POC Glucose 135 H (83-110) mg/dL Calcium (8.5-10.1) mg/dL Magnesium (1.8-2.4) mg/dl Troponin I (0.00-0.056) ng/mL NT-Pro-B Natriuret Pep 1103 H (0-450) pg/mL MRSA (PCR) 02/12/18 02/12/18 Range/Units 11:13 17:46 WBC (3.98-10.04) K/mm3 RBC (3.98-5.22) M/mm3 Hgb (11.2-15.7) gm/L Hct (34.1-44.9) % MCV (79.4-94.8) fl MCH (25.6-32.2) pg MCHC (32.2-35.5) g/dl RDW Std Deviation (36.4-46.3) fL Plt Count (182-369) K/mm3 MPV (9.4-12.3) fl Neut % (Auto) (34.0-71.1) % Lymph % (Auto) (19.3-51.7) % Aiken % (Auto) (4.7-12.5) % Eos % (Auto) (0.7-5.8) Baso % (Auto) (0.1-1.2) % Neut # (Auto) (1.56-6.13) K/mm3 Lymph # (Auto) (1.18-3.74) K/mm3 Aiken # (Auto) (0.24-0.36) K/mm3 Eos # (Auto) (0.04-0.36) K/mm3 Baso # (Auto) (0.01-0.08) K/mm3 Sodium (136-145) mEq/L Potassium (3.5-5.1) mEq/L Chloride (98-107) mEq/L Carbon Dioxide (21-32) mEq/L Anion Gap (5-15) BUN (7-18) mg/dL Creatinine (0.55-1.02) mg/dL Est Cr Clr Drug Dosing Estimated GFR (MDRD) (>60) mL/min BUN/Creatinine Ratio (14-18) Glucose (83-115) mg/dL POC Glucose 183 H 115 H (83-110) mg/dL Calcium (8.5-10.1) mg/dL Magnesium (1.8-2.4) mg/dl Troponin I (0.00-0.056) ng/mL NT-Pro-B Natriuret Pep (0-450) pg/mL MRSA (PCR) Med Orders - Current: Current Medications Aspirin (Halfprin) 162 mg PO DAILY [facility] Last Admin: 02/12/18 08:13 Dose: 162 mg Calcium Carbonate (Calcium Carbonate/Vitamin D 600 Mg-200 Unit) 1 tab PO BID [facility] Last Admin: 02/12/18 08:26 Dose: 1 tab Dextrose/Water (Dextrose 50% In Water) 50 ml IVPUSH ASDIRECTED PRN PRN Reason: Hypoglycemia Enoxaparin Sodium (Lovenox) 55 mg SUBCUT QPM [facility] Last Admin: 02/12/18 18:02 Dose: 55 mg Glimepiride (Glimepiride) 4 mg PO WITHBREAKFAST [facility] Last Admin: 02/12/18 06:45 Dose: 4 mg Amiodarone HCl/Dextrose (Nexterone In Dextrose 360 Mg/200 Ml) 360 mg in 200 mls @ 33.333 mls/hr IV ASDIRECTED KIKO; Protocol Last Admin: 02/12/18 16:01 Dose: 18 mls/hr Amiodarone HCl 300 mg/ (Dextrose/Water) 106 mls @ 300 mls/hr IV .BOLUS ONE Stop: 02/12/18 18:40 Insulin Aspart (Novolog) 0 unit SUBCUT QIDACANDBED [facility]; Protocol Last Admin: 02/12/18 17:48 Dose: Not Given Metoprolol Tartrate (Lopressor) 5 mg IVPUSH Q6H PRN PRN Reason: heart rate >120 Last Admin: 02/12/18 08:25 Dose: 5 mg Multivitamins (Thera) 1 each PO DAILY [facility] Last Admin: 02/12/18 08:12 Dose: 1 each Quetiapine Fumarate (Seroquel) 50 mg PO BID [facility] Last Admin: 02/12/18 08:12 Dose: 50 mg Saccharomyces Boulardii (Florastor) 250 mg PO TID [facility] Last Admin: 02/12/18 16:02 Dose: 250 mg Simvastatin (Zocor) 10 mg PO BEDTIME [facility] Last Admin: 02/11/18 20:51 Dose: 10 mg Sodium Chloride (Saline Flush) 10 ml FLUSH ASDIRECTED PRN PRN Reason: Keep Vein Open Last Admin: 02/11/18 12:55 Dose: 10 ml Tramadol HCl (Ultram) 50 mg PO Q6H PRN PRN Reason: Pain Discontinued Medications Diltiazem HCl (Diltiazem) 10 mg IVPUSH ONETIME ONE Stop: 02/11/18 13:47 Last Admin: 02/11/18 16:20 Dose: 10 mg Diltiazem HCl (Diltiazem) Confirm Administered Dose 125 mg .ROUTE .STK-MED ONE Stop: 02/11/18 16:14 Last Admin: 02/11/18 16:47 Dose: Not Given Enoxaparin Sodium (Lovenox) 55 mg SUBCUT DAILY [facility] Enoxaparin Sodium (Lovenox) 55 mg SUBCUT ONETIME ONE Stop: 02/11/18 21:52 Last Admin: 02/11/18 22:04 Dose: 55 mg Sodium Chloride (Normal Saline) 1,000 mls @ 150 mls/hr IV ASDIRECTED [facility] Sodium Chloride (Normal Saline) 250 mls @ 999 mls/hr IV .BOLUS ONE Stop: 02/11/18 12:56 Last Admin: 02/11/18 12:55 Dose: 999 mls/hr Diltiazem HCl 125 mg/ Sodium (Chloride) 125 mls @ 10 mls/hr IV TITRATE ONE; Protocol Stop: 02/12/18 02:16 Last Titration: 02/11/18 18:45 Dose: 15 mg/hr, 15 mls/hr Magnesium Sulfate 2 gm/ Premix 50 mls @ 25 mls/hr IV ONETIME ONE Stop: 02/11/18 15:47 Last Admin: 02/11/18 14:33 Dose: 25 mls/hr Amiodarone HCl/Dextrose 150 mg (/ Premix) 100 mls @ 600 mls/hr IV NOW ONE Stop: 02/11/18 20:39 Last Admin: 02/11/18 20:50 Dose: 600 mls/hr Magnesium Sulfate 2 gm/ Premix 50 mls @ 25 mls/hr IV ONETIME ONE Stop: 02/12/18 11:26 Last Admin: 02/12/18 10:31 Dose: 25 mls/hr Amiodarone HCl/Dextrose (Nexterone In Dextrose 150 Mg/100 Ml) 100 mls @ 582.524 mls/hr IV .BOLUS ONE Stop: 02/12/18 09:39 Last Admin: 02/12/18 10:16 Dose: 582.524 mls/hr Metoprolol Succinate (Toprol Xl) 50 mg PO BIDPC KIKO - Exam Quality Assessment: Supplemental Oxygen, DVT Prophylaxis General: Alert, Oriented, No Acute Distress HEENT: Pupils Equal, Pupils Reactive, EOMI Neck: Trachea Midline, No JVD Lungs: Normal Respiratory Effort, Decreased Breath Sounds Cardiovascular: Regular Rate, Irregular Rhythm, Tachycardia GI/Abdominal Exam: Normal Bowel Sounds, Soft, Non-Tender, No Organomegaly, No Distention (Female) Exam: Deferred Back Exam: Normal Inspection Extremities: Normal Inspection, Non-Tender, Normal Capillary Refill Skin: Warm Neurological: No New Focal Deficit, Normal Speech Psy/Mental Status: Alert - Problem List & Annotations (1) Atrial flutter by electrocardiogram SNOMED Code(s): 742459067 Code(s): I48.92 - UNSPECIFIED ATRIAL FLUTTER Status: Acute Current Visit : Yes (2) Dementia SNOMED Code(s): 57757122 Code(s): F03.90 - UNSPECIFIED DEMENTIA WITHOUT BEHAVIORAL DISTURBANCE Status: Acute Current Visit: No Qualifiers: Dementia type: Alzheimer's disease Alzheimer's disease onset: late-onset Dementia behavioral disturbance: with behavioral disturbance Qualified Code(s) : G30.1 - Alzheimer's disease with late onset (3) HTN, Benign hypertension SNOMED Code(s): 55982543 Code(s): I10 - ESSENTIAL (PRIMARY) HYPERTENSION Status: Acute Current Visit: No - Problem List Review Problem List Initiated/Reviewed/Updated: Yes - My Orders Last 24 Hours: My Active Orders 02/11/18 18:55 traMADol [Ultram] 50 mg PO Q6H PRN 02/11/18 19:02 Blood Glucose Check, Bedside [RC] QIDACANDBED Dextrose 50% in Water 50 ml IVPUSH ASDIRECTED PRN RAUL Hose [Antiembolic Hose] [OM.PC] Routine 02/11/18 19:03 Code Status [Resuscitation Status] Routine 02/11/18 20:12 Metoprolol Tartrate [Lopressor] 5 mg IVPUSH Q6H PRN 02/11/18 20:30 Amiodarone In Dextrose,Iso-Osm [Nexterone in Dextrose 360 MG/200 ML] 360 mg in 200 ml IV ASDIRECTED 02/11/18 21:00 QUEtiapine [SEROquel] 50 mg PO BID Saccharomyces Boulardii [Florastor] 250 mg PO TID Simvastatin [Zocor] 10 mg PO BEDTIME 02/11/18 22:00 Insulin Aspart [NovoLOG] See Protocol SUBCUT QIDACANDBED 02/12/18 07:00 Glimepiride 4 mg PO WITHBREAKFAST 02/12/18 09:00 Aspirin [Halfprin] 162 mg PO DAILY Calcium Carbonate/Vitamin D3 [Calcium Carbonate/Vitamin D 600 MG-200 Unit] 1 tab PO BID Multivitamins,Therapeutic [Thera] 1 each PO DAILY 02/12/18 09:27 EKG 12 Lead [EKG Documentation Completion] [RC] ROUTINE 02/12/18 18:00 Enoxaparin [Lovenox] 55 mg SUBCUT QPM 02/12/18 18:19 Amiodarone [Cordarone] 300 mg Dextrose 5% in Water 100 ml IV .BOLUS 02/13/18 05:00 BMP [BASIC METABOLIC PANEL,BMP] [CHEM] DAILY CBC WITH AUTO DIFF [HEME] DAILY MAGNESIUM [CHEM] DAILY PRO B-TYPE NATRIUR PEPT,BNPPRO [CHEM] DAILY TROPONIN I [CHEM] DAILY 02/13/18 09:00 Echo Comp wo Cont [US] Routine 02/14/18 05:00 BMP [BASIC METABOLIC PANEL,BMP] [CHEM] DAILY CBC WITH AUTO DIFF [HEME] DAILY MAGNESIUM [CHEM] DAILY PRO B-TYPE NATRIUR PEPT,BNPPRO [CHEM] DAILY 02/15/18 05:00 BMP [BASIC METABOLIC PANEL,BMP] [CHEM] DAILY CBC WITH AUTO DIFF [HEME] DAILY MAGNESIUM [CHEM] DAILY - Plan Plan:: Impression: NCT, asymptomatic; negative cardiac enzymes Hx of dementia, Alzheimer Hx of DM type 2 Chronic HTN HLD CVA C diff Depression Glaucoma Plan: IV Amiodarone BB IV as needed Begin oral AV nessa blockers Serial Cardiac markers Daily labs Home meds DVT/GI prophylaxis Lovenox, renal dose adjustment Consult PT/OT as needed.
[2018-02-12] MEDS: Potassium Chloride 20 MEQ Tab.ER PO SCH (18:57)
[2018-02-12] MEDS: Metoprolol Tartrate 50 MG Tab PO SCH (20:31)
[2018-02-12] MEDS: Simvastatin 10 MG Tab PO SCH (20:32)
[2018-02-13] MEDS: Glimepiride 4 MG Tab PO SCH (06:16)
--- NOTE | 2018-02-13 07:29 | CR ---
Chest: Portable view of the chest was obtained. Comparison: Prior chest x-ray of 06/24/16. Heart size appears within normal limits for portable technique. Slight tortuosity of the thoracic aorta is seen with atherosclerotic calcification. Lung markings are increased from prior exam on the left side presumably due to asymmetric bronchitis. Right-sided lung markings are stable in appearance from previous exam. Slight atelectasis is also felt to be present within the left base. Impression: 1. Slight increased lung markings on the left side raising the possibility of bronchitis. Please correlate if patient has any correlating symptoms. 2. Chest x-ray is otherwise stable from previous chest x-ray. Diagnostic code #3
[2018-02-13] MEDS: Insulin Aspart 100 Units/ML 3 ML Pen SUBCUT SCH ×4 (07:32→21:10)
[2018-02-13] MEDS: Metoprolol Tartrate 50 MG Tab PO SCH (09:47)
[2018-02-13] MEDS: Aspirin 81 MG Tab.EC PO SCH (09:47)
[2018-02-13] MEDS: Calcium Carbonate/Vitamin D3 600 MG-200 Units Tab PO SCH ×2 (09:48→20:00)
[2018-02-13] MEDS: Potassium Chloride 20 MEQ Tab.ER PO SCH (09:48)
[2018-02-13] MEDS: QUEtiapine 25 MG Tab PO SCH ×2 (09:48→20:01)
[2018-02-13] MEDS: Furosemide 20 MG/2 ML VIAL IVPUSH SCH (09:48)
[2018-02-13] MEDS: Multivitamins,Therapeutic Tab PO SCH (09:48)
[2018-02-13] MEDS: Saccharomyces Boulardii (Probiotic) 250 MG Cap PO SCH ×3 (09:48→20:21)
--- NOTE | 2018-02-13 14:58 | PCM.PN ---
- General Info Date of Service: 02/13/18 Admission Dx/Problem (Free Text): Admission Diagnosis/Problem Admission Diagnosis/Problem Atrial fibrillation with rapid ventricular response Subjective Update: In to see [place]. She is resting comfortably in bed. She is alert to person only , but she appears to answer most questions appropriately. She denies chest pain , palpitations, or dyspnea. Functional Status: Reports: Pain Controlled, Tolerating Diet, Ambulating, Urinating - Review of Systems General: Reports: Weakness (baseline ). Denies: Fever HEENT: Reports: No Symptoms. Denies: Sinus Congestion, Sore Throat Pulmonary: Reports: No Symptoms. Denies: Shortness of Breath, Cough Cardiovascular: Reports: No Symptoms. Denies: Chest Pain, Palpitations Gastrointestinal: Reports: No Symptoms. Denies: Abdominal Pain, Constipation, Diarrhea, Nausea, Vomiting Genitourinary: Reports: No Symptoms. Denies: Dysuria, Frequency, Burning Musculoskeletal: Reports: No Symptoms. Denies: Joint Pain Skin: Reports: No Symptoms Neurological: Reports: No Symptoms. Denies: Dizziness, Headache, Numbness Psychiatric: Reports: No Symptoms - Patient Data Vitals - Most Recent: Last Vital Signs Temp 97.9 F 02/13/18 12:00 Pulse 111 H 02/13/18 09:47 Resp 20 02/13/18 14:00 BP 117/105 H 02/13/18 14:00 Pulse Ox 96 02/13/18 14:00 Weight - Most Recent: 125 lb 14.4 oz I&O - Last 24 Hours: Intake & Output 02/12/18 02/13/18 02/13/18 22:59 06:59 14:59 Intake Total 793 156 120 Output Total 200 Balance 793 -44 120 Lab Results Last 24 Hours: Laboratory Results - last 24 hr 02/12/18 02/12/18 02/12/18 Range/Units 11:13 17:46 20:37 WBC (3.98-10.04) K/mm3 RBC (3.98-5.22) M/mm3 Hgb (11.2-15.7) gm/L Hct (34.1-44.9) % MCV (79.4-94.8) fl MCH (25.6-32.2) pg MCHC (32.2-35.5) g/dl RDW Std Deviation (36.4-46.3) fL Plt Count (182-369) K/mm3 MPV (9.4-12.3) fl Neut % (Auto) (34.0-71.1) % Lymph % (Auto) (19.3-51.7) % [place] % (Auto) (4.7-12.5) % Eos % (Auto) (0.7-5.8) Baso % (Auto) (0.1-1.2) % Neut # (Auto) (1.56-6.13) K/mm3 Lymph # (Auto) (1.18-3.74) K/mm3 [place] # (Auto) (0.24-0.36) K/mm3 Eos # (Auto) (0.04-0.36) K/mm3 Baso # (Auto) (0.01-0.08) K/mm3 Sodium (136-145) mEq/L Potassium (3.5-5.1) mEq/L Chloride (98-107) mEq/L Carbon Dioxide (21-32) mEq/L Anion Gap (5-15) BUN (7-18) mg/dL Creatinine (0.55-1.02) mg/dL Est Cr Clr Drug Dosing mL/min Estimated GFR (MDRD) (>60) mL/min BUN/Creatinine Ratio (14-18) Glucose (83-115) mg/dL POC Glucose 183 H 115 H 162 H (83-110) mg/dL Calcium (8.5-10.1) mg/dL Magnesium (1.8-2.4) mg/dl Troponin I (0.00-0.056) ng/mL NT-Pro-B Natriuret Pep (0-450) pg/mL Urine Color (Yellow) Urine Appearance (Clear) Urine pH (5.0-8.0) Ur Specific [place] (1.005-1.030) Urine Protein (Negative) Urine Glucose (UA) (Negative) Urine Ketones (Negative) Urine Occult Blood (Negative) Urine Nitrite (Negative) Urine Bilirubin (Negative) Urine Urobilinogen (0.2-1.0) Ur Leukocyte Esterase (Negative) Urine RBC (0-5) /hpf Urine WBC (0-5) /hpf Ur Epithelial Cells (0-5) /hpf Urine Bacteria (FEW) /hpf Urine Mucus (FEW) /hpf 07/01/18 07/02/18 07/02/18 Range/Units 21:05 05:33 05:33 WBC 9.35 (3.98-10.04) K/mm3 RBC 4.32 (3.98-5.22) M/mm3 Hgb 11.2 (11.2-15.7) gm/L Hct 34.6 (34.1-44.9) % MCV 80.1 (79.4-94.8) fl MCH 25.9 (25.6-32.2) pg MCHC 32.4 (32.2-35.5) g/dl RDW Std Deviation 42.9 (36.4-46.3) fL Plt Count 227 (182-369) K/mm3 MPV 10.9 (9.4-12.3) fl Neut % (Auto) 64.1 (34.0-71.1) % Lymph % (Auto) 25.0 (19.3-51.7) % [place] % (Auto) 8.2 (4.7-12.5) % Eos % (Auto) 2.2 (0.7-5.8) Baso % (Auto) 0.3 (0.1-1.2) % Neut # (Auto) 5.98 (1.56-6.13) K/mm3 Lymph # (Auto) 2.34 (1.18-3.74) K/mm3 [place] # (Auto) 0.77 H (0.24-0.36) K/mm3 Eos # (Auto) 0.21 (0.04-0.36) K/mm3 Baso # (Auto) 0.03 (0.01-0.08) K/mm3 Sodium 138 (136-145) mEq/L Potassium 4.1 (3.5-5.1) mEq/L Chloride 104 (98-107) mEq/L Carbon Dioxide 23 (21-32) mEq/L Anion Gap 15.1 H (5-15) BUN 26 H (7-18) mg/dL Creatinine 1.0 (0.55-1.02) mg/dL Est Cr Clr Drug Dosing 34.02 mL/min Estimated GFR (MDRD) 53 (>60) mL/min BUN/Creatinine Ratio 26.0 H (14-18) Glucose 200 H (83-115) mg/dL POC Glucose (83-110) mg/dL Calcium 8.8 (8.5-10.1) mg/dL Magnesium 1.9 (1.8-2.4) mg/dl Troponin I < 0.017 (0.00-0.056) ng/mL NT-Pro-B Natriuret Pep (0-450) pg/mL Urine Color Yellow (Yellow) Urine Appearance Clear (Clear) Urine pH 5.5 (5.0-8.0) Ur Specific [place] > or = 1.030 (1.005-1.030) Urine Protein Negative (Negative) Urine Glucose (UA) Negative (Negative) Urine Ketones Negative (Negative) Urine Occult Blood Negative (Negative) Urine Nitrite Positive H (Negative) Urine Bilirubin Negative (Negative) Urine Urobilinogen 0.2 (0.2-1.0) Ur Leukocyte Esterase Negative (Negative) Urine RBC 0-5 (0-5) /hpf Urine WBC 0-5 (0-5) /hpf Ur Epithelial Cells 0-5 (0-5) /hpf Urine Bacteria Many H (FEW) /hpf Urine Mucus Not seen (FEW) /hpf 02/13/18 02/13/18 02/13/18 Range/Units 05:33 05:34 11:17 WBC (3.98-10.04) K/mm3 RBC (3.98-5.22) M/mm3 Hgb (11.2-15.7) gm/L Hct (34.1-44.9) % MCV (79.4-94.8) fl MCH (25.6-32.2) pg MCHC (32.2-35.5) g/dl RDW Std Deviation (36.4-46.3) fL Plt Count (182-369) K/mm3 MPV (9.4-12.3) fl Neut % (Auto) (34.0-71.1) % Lymph % (Auto) (19.3-51.7) % [place] % (Auto) (4.7-12.5) % Eos % (Auto) (0.7-5.8) Baso % (Auto) (0.1-1.2) % Neut # (Auto) (1.56-6.13) K/mm3 Lymph # (Auto) (1.18-3.74) K/mm3 [place] # (Auto) (0.24-0.36) K/mm3 Eos # (Auto) (0.04-0.36) K/mm3 Baso # (Auto) (0.01-0.08) K/mm3 Sodium (136-145) mEq/L Potassium (3.5-5.1) mEq/L Chloride (98-107) mEq/L Carbon Dioxide (21-32) mEq/L Anion Gap (5-15) BUN (7-18) mg/dL Creatinine (0.55-1.02) mg/dL Est Cr Clr Drug Dosing mL/min Estimated GFR (MDRD) (>60) mL/min BUN/Creatinine Ratio (14-18) Glucose (83-115) mg/dL POC Glucose 171 H 287 H (83-110) mg/dL Calcium (8.5-10.1) mg/dL Magnesium (1.8-2.4) mg/dl Troponin I (0.00-0.056) ng/mL NT-Pro-B Natriuret Pep 1499 H (0-450) pg/mL Urine Color (Yellow) Urine Appearance (Clear) Urine pH (5.0-8.0) Ur Specific [place] (1.005-1.030) Urine Protein (Negative) Urine Glucose (UA) (Negative) Urine Ketones (Negative) Urine Occult Blood (Negative) Urine Nitrite (Negative) Urine Bilirubin (Negative) Urine Urobilinogen (0.2-1.0) Ur Leukocyte Esterase (Negative) Urine RBC (0-5) /hpf Urine WBC (0-5) /hpf Ur Epithelial Cells (0-5) /hpf Urine Bacteria (FEW) /hpf Urine Mucus (FEW) /hpf Med Orders - Current: Current Medications Aspirin (Halfprin) 162 mg PO DAILY [facility] Last Admin: 02/13/18 09:47 Dose: 162 mg Calcium Carbonate (Calcium Carbonate/Vitamin D 600 Mg-200 Unit) 1 tab PO BID [facility] Last Admin: 02/13/18 09:48 Dose: 1 tab Dextrose/Water (Dextrose 50% In Water) 50 ml IVPUSH ASDIRECTED PRN PRN Reason: Hypoglycemia Enoxaparin Sodium (Lovenox) 55 mg SUBCUT QPM [facility] Last Admin: 02/12/18 18:02 Dose: 55 mg Furosemide (Lasix) 20 mg IVPUSH DAILY [facility] Last Admin: 02/13/18 09:48 Dose: 20 mg Glimepiride (Glimepiride) 4 mg PO WITHBREAKFAST [facility] Last Admin: 02/13/18 06:16 Dose: 4 mg Amiodarone HCl/Dextrose (Nexterone In Dextrose 360 Mg/200 Ml) 360 mg in 200 mls @ 33.333 mls/hr IV ASDIRECTED [facility]; Protocol Last Admin: 02/13/18 03:14 Dose: 16 mls/hr Insulin Aspart (Novolog) 0 unit SUBCUT QIDACANDBED [facility]; Protocol Last Admin: 02/13/18 11:20 Dose: 3 unit Metoprolol Tartrate (Lopressor) 5 mg IVPUSH Q6H PRN PRN Reason: heart rate >120 Last Admin: 02/12/18 08:25 Dose: 5 mg Metoprolol Tartrate (Lopressor) 25 mg PO TID [facility] Multivitamins (Thera) 1 each PO DAILY [facility] Last Admin: 02/13/18 09:48 Dose: 1 each Potassium Chloride (Klor-Con M20) 40 meq PO DAILY [facility] Last Admin: 02/13/18 09:48 Dose: 40 meq Quetiapine Fumarate (Seroquel) 50 mg PO BID [facility] Last Admin: 02/13/18 09:48 Dose: 50 mg Saccharomyces Boulardii (Florastor) 250 mg PO TID [facility] Last Admin: 02/13/18 09:48 Dose: 250 mg Simvastatin (Zocor) 10 mg PO BEDTIME [facility] Last Admin: 02/12/18 20:32 Dose: 10 mg Sodium Chloride (Saline Flush) 10 ml FLUSH ASDIRECTED PRN PRN Reason: Keep Vein Open Last Admin: 02/11/18 12:55 Dose: 10 ml Tramadol HCl (Ultram) 50 mg PO Q6H PRN PRN Reason: Pain Discontinued Medications Diltiazem HCl (Diltiazem) 10 mg IVPUSH ONETIME ONE Stop: 02/11/18 13:47 Last Admin: 02/11/18 16:20 Dose: 10 mg Diltiazem HCl (Diltiazem) Confirm Administered Dose 125 mg .ROUTE .STK-MED ONE Stop: 02/11/18 16:14 Last Admin: 02/11/18 16:47 Dose: Not Given Enoxaparin Sodium (Lovenox) 55 mg SUBCUT DAILY [facility] Enoxaparin Sodium (Lovenox) 55 mg SUBCUT ONETIME ONE Stop: 02/11/18 21:52 Last Admin: 02/11/18 22:04 Dose: 55 mg Sodium Chloride (Normal Saline) 1,000 mls @ 150 mls/hr IV ASDIRECTED [facility] Sodium Chloride (Normal Saline) 250 mls @ 999 mls/hr IV .BOLUS ONE Stop: 02/11/18 12:56 Last Admin: 02/11/18 12:55 Dose: 999 mls/hr Diltiazem HCl 125 mg/ Sodium (Chloride) 125 mls @ 10 mls/hr IV TITRATE ONE; Protocol Stop: 02/12/18 02:16 Last Titration: 02/11/18 18:45 Dose: 15 mg/hr, 15 mls/hr Magnesium Sulfate 2 gm/ Premix 50 mls @ 25 mls/hr IV ONETIME ONE Stop: 02/11/18 15:47 Last Admin: 02/11/18 14:33 Dose: 25 mls/hr Amiodarone HCl/Dextrose 150 mg (/ Premix) 100 mls @ 600 mls/hr IV NOW ONE Stop: 02/11/18 20:39 Last Admin: 02/11/18 20:50 Dose: 600 mls/hr Magnesium Sulfate 2 gm/ Premix 50 mls @ 25 mls/hr IV ONETIME ONE Stop: 02/12/18 11:26 Last Admin: 02/12/18 10:31 Dose: 25 mls/hr Amiodarone HCl/Dextrose (Nexterone In Dextrose 150 Mg/100 Ml) 100 mls @ 582.524 mls/hr IV .BOLUS ONE Stop: 02/12/18 09:39 Last Admin: 02/12/18 10:16 Dose: 582.524 mls/hr Amiodarone HCl 300 mg/ (Dextrose/Water) 106 mls @ 300 mls/hr IV .BOLUS ONE Stop: 02/12/18 18:40 Last Admin: 02/12/18 18:57 Dose: 300 mls/hr Metoprolol Succinate (Toprol Xl) 50 mg PO BIDPC [facility] Metoprolol Tartrate (Lopressor) 50 mg PO Q12HR [facility] Last Admin: 02/13/18 09:47 Dose: 50 mg - Exam Quality Assessment: No: Supplemental Oxygen General: Alert, Cooperative, No Acute Distress, Other (Oriented to person only ) HEENT: Pupils Equal, Pupils Reactive, EOMI, Mucous Membr. Moist/[place] Neck: Supple, Trachea Midline. No: Lymphadenopathy Lungs: Clear to Auscultation, Normal Respiratory Effort Cardiovascular: Regular Rhythm, No Murmurs, Tachycardia GI/Abdominal Exam: Normal Bowel Sounds, Soft, Non-Tender, No Distention (Female) Exam: Deferred Back Exam: Normal Inspection, Decreased Range of Motion Extremities: Normal Inspection, Normal Range of Motion, Non-Tender, No Pedal Edema Peripheral Pulses: 1+: Radial (L), Radial (R), Posterior Tibial (L), Posterior Tibial (R), Dorsalis Pedis (L), Dorsalis Pedis (R) Skin: Warm, Dry, Intact Neurological: No New Focal Deficit, Strength Equal Bilateral (weakness present ) , Cranial Nerves Intact (grossly ) Psy/Mental Status: Alert, Normal Affect, Normal Mood - Problem List Review Problem List Initiated/Reviewed/Updated: Yes - My Orders Last 24 Hours: My Active Orders 02/13/18 11:38 Up to Chair [RC] ASDIRECTED Consult to Physical Therapy [PT Evaluation and Treatment] [CONS] Routine 02/13/18 11:39 Bedrest Bathroom Privileges [RC] ASDIRECTED May Shower [RC] ASDIRECTED Consult to Occupational Therapy [OT Evaluation and Treatment] [CONS] Routine - Plan Plan:: Impression: Acute: Narrow Complex Tachycardia * EKG in ED showed atrial flutter --> Unknown if new or chronic * Received Cardizem bolus and drip in ED * Currently on amiodarone drip --> Amiodarone drip will be d/c'd at 21:00 today with amiodarone 400 mg po BID to be initiated today at 20:00 * Metoprolol tartrate 25 mg po TID ordered (metoprolol succinate 100 mg po daily at home) * Cardiac enzymes negative * She is asymptomatic * TSH 1.743 * She received Lovenox 55 mg SC x 1 --> discussed anticoagulation with patient' s PCP, Dr. Keith, with decision made to initiate NOAC --> will discontinue Lovenox and start Eliquis 2.5 mg po BID with first dose to be given tonight Elevated BNP * 1103 in ED, today 1499 today * 2D Echo report pending * Clinically no s/sx of heart failure Type 2 DM * Glucose range from 115-287 during admission * Continue glimeperide 4 mg po with breakfast * AccuChecks QID (AC and HS) with Low dose SSI * Diabetic diet * Monitor Renal insufficiency * Cr 1.1 and eGFR 47 in ED; today Cr 1.0 and eGFR 53 * Appears to be near baseline per records * Monitor Weakness, Acute on Chronic * Exacerbated by current medical state * She is a resident of [facility] * PT/OT consult Resolved: Hypomagnesemia, resolved * 1.4 in ED, 1.9 today * Received Mg sulfate 2 gm IV x 1 * Monitor Chronic: HTN HLD CVA C diff Depression Glaucoma Alzheimer's Dementia Type 2 DM Plan: ICU IV Amiodarone, transition to oral Begin oral AV nessa blockers Daily labs Home meds as indicated Mechanical Soft, Diabetic diet DVT prophylaxis: Eliquis Consult PT/OT Code Status: DNR/DNI PCP: Dr. Jonny Keith
[2018-02-13] MEDS: Metoprolol Tartrate 25 MG Tab PO SCH ×2 (15:04→20:00)
[2018-02-13] MEDS: Amiodarone 200 MG Tab PO SCH ×2 (19:56→20:01)
[2018-02-13] MEDS: Apixaban 5 MG Tab PO SCH (20:00)
[2018-02-13] MEDS: Simvastatin 10 MG Tab PO SCH (20:00)
[2018-02-14] MEDS: Insulin Aspart 100 Units/ML 3 ML Pen SUBCUT SCH ×5 (07:00→21:38)
[2018-02-14] MEDS: Glimepiride 4 MG Tab PO SCH (07:01)
[2018-02-14] MEDS: Potassium Chloride 20 MEQ Tab.ER PO SCH (08:16)
[2018-02-14] MEDS: Aspirin 81 MG Tab.EC PO SCH (08:19)
[2018-02-14] MEDS: Amiodarone 200 MG Tab PO SCH ×2 (08:19→20:12)
[2018-02-14] MEDS: Furosemide 20 MG/2 ML VIAL IVPUSH SCH (08:20)
[2018-02-14] MEDS: Multivitamins,Therapeutic Tab PO SCH (08:20)
[2018-02-14] MEDS: Apixaban 5 MG Tab PO SCH ×2 (08:20→20:11)
[2018-02-14] MEDS: QUEtiapine 25 MG Tab PO SCH ×2 (08:21→20:11)
[2018-02-14] MEDS: Metoprolol Tartrate 25 MG Tab PO SCH ×3 (08:21→20:13)
[2018-02-14] MEDS: Saccharomyces Boulardii (Probiotic) 250 MG Cap PO SCH ×3 (08:21→20:12)
[2018-02-14] MEDS: Calcium Carbonate/Vitamin D3 600 MG-200 Units Tab PO SCH ×2 (08:22→20:11)
--- NOTE | 2018-02-14 11:14 | PCM.PN ---
- General Info Date of Service: 02/14/18 Admission Dx/Problem (Free Text): Admission Diagnosis/Problem Admission Diagnosis/Problem Atrial fibrillation with rapid ventricular response Subjective Update: In to see Morena. She is resting comfortably in bed. She does appear quite tired today. She is oriented to person only, but is able to answer some questions appropriately. She denies chest pain, palpitations, or dyspnea. Functional Status: Reports: Pain Controlled, Tolerating Diet, Ambulating (with assistance ), Urinating - Review of Systems General: Reports: No Symptoms. Denies: Fever, Chills HEENT: Reports: No Symptoms Pulmonary: Reports: No Symptoms. Denies: Shortness of Breath, Cough Cardiovascular: Reports: No Symptoms. Denies: Chest Pain, Palpitations, Edema Gastrointestinal: Reports: No Symptoms. Denies: Abdominal Pain, Constipation, Diarrhea, Nausea, Vomiting Genitourinary: Reports: No Symptoms. Denies: Dysuria, Frequency, Burning Musculoskeletal: Reports: No Symptoms. Denies: Joint Pain Skin: Reports: No Symptoms Neurological: Reports: No Symptoms. Denies: Dizziness, Headache Psychiatric: Reports: No Symptoms - Patient Data Vitals - Most Recent: Last Vital Signs Temp 97.1 F 02/14/18 08:00 Pulse 112 H 02/14/18 08:21 Resp 21 H 02/14/18 08:00 BP 136/87 02/14/18 08:21 Pulse Ox 96 02/14/18 08:00 Weight - Most Recent: 119 lb 9.6 oz I&O - Last 24 Hours: Intake & Output 02/13/18 02/14/18 02/14/18 22:59 06:59 14:59 Intake Total 352 92 Balance 352 92 Lab Results Last 24 Hours: Laboratory Results - last 24 hr 02/13/18 02/13/18 02/13/18 Range/Units 11:17 17:19 21:09 WBC (3.98-10.04) K/mm3 RBC (3.98-5.22) M/mm3 Hgb (11.2-15.7) gm/L Hct (34.1-44.9) % MCV (79.4-94.8) fl MCH (25.6-32.2) pg MCHC (32.2-35.5) g/dl RDW Std Deviation (36.4-46.3) fL Plt Count (182-369) K/mm3 MPV (9.4-12.3) fl Neut % (Auto) (34.0-71.1) % Lymph % (Auto) (19.3-51.7) % [place] % (Auto) (4.7-12.5) % Eos % (Auto) (0.7-5.8) Baso % (Auto) (0.1-1.2) % Neut # (Auto) (1.56-6.13) K/mm3 Lymph # (Auto) (1.18-3.74) K/mm3 [place] # (Auto) (0.24-0.36) K/mm3 Eos # (Auto) (0.04-0.36) K/mm3 Baso # (Auto) (0.01-0.08) K/mm3 Sodium (136-145) mEq/L Potassium (3.5-5.1) mEq/L Chloride (98-107) mEq/L Carbon Dioxide (21-32) mEq/L Anion Gap (5-15) BUN (7-18) mg/dL Creatinine (0.55-1.02) mg/dL Est Cr Clr Drug Dosing mL/min Estimated GFR (MDRD) (>60) mL/min BUN/Creatinine Ratio (14-18) Glucose (83-115) mg/dL POC Glucose 287 H 211 H 250 H (83-110) mg/dL Calcium (8.5-10.1) mg/dL Magnesium (1.8-2.4) mg/dl NT-Pro-B Natriuret Pep (0-450) pg/mL 02/14/18 02/14/18 02/14/18 Range/Units 06:00 06:00 06:00 WBC 7.00 (3.98-10.04) K/mm3 RBC 4.31 (3.98-5.22) M/mm3 Hgb 11.1 L (11.2-15.7) gm/L Hct 34.7 (34.1-44.9) % MCV 80.5 (79.4-94.8) fl MCH 25.8 (25.6-32.2) pg MCHC 32.0 L (32.2-35.5) g/dl RDW Std Deviation 44.0 (36.4-46.3) fL Plt Count 207 (182-369) K/mm3 MPV 10.6 (9.4-12.3) fl Neut % (Auto) 60.0 (34.0-71.1) % Lymph % (Auto) 25.0 (19.3-51.7) % [place] % (Auto) 10.9 (4.7-12.5) % Eos % (Auto) 3.6 (0.7-5.8) Baso % (Auto) 0.4 (0.1-1.2) % Neut # (Auto) 4.20 (1.56-6.13) K/mm3 Lymph # (Auto) 1.75 (1.18-3.74) K/mm3 [place] # (Auto) 0.76 H (0.24-0.36) K/mm3 Eos # (Auto) 0.25 (0.04-0.36) K/mm3 Baso # (Auto) 0.03 (0.01-0.08) K/mm3 Sodium 141 (136-145) mEq/L Potassium 3.7 (3.5-5.1) mEq/L Chloride 107 (98-107) mEq/L Carbon Dioxide 24 (21-32) mEq/L Anion Gap 13.7 (5-15) BUN 27 H (7-18) mg/dL Creatinine 1.0 (0.55-1.02) mg/dL Est Cr Clr Drug Dosing 34.02 mL/min Estimated GFR (MDRD) 53 (>60) mL/min BUN/Creatinine Ratio 27.0 H (14-18) Glucose 198 H (83-115) mg/dL POC Glucose (83-110) mg/dL Calcium 9.3 (8.5-10.1) mg/dL Magnesium 1.9 (1.8-2.4) mg/dl NT-Pro-B Natriuret Pep 3354 H (0-450) pg/mL 02/14/18 Range/Units 06:01 WBC (3.98-10.04) K/mm3 RBC (3.98-5.22) M/mm3 Hgb (11.2-15.7) gm/L Hct (34.1-44.9) % MCV (79.4-94.8) fl MCH (25.6-32.2) pg MCHC (32.2-35.5) g/dl RDW Std Deviation (36.4-46.3) fL Plt Count (182-369) K/mm3 MPV (9.4-12.3) fl Neut % (Auto) (34.0-71.1) % Lymph % (Auto) (19.3-51.7) % [place] % (Auto) (4.7-12.5) % Eos % (Auto) (0.7-5.8) Baso % (Auto) (0.1-1.2) % Neut # (Auto) (1.56-6.13) K/mm3 Lymph # (Auto) (1.18-3.74) K/mm3 [place] # (Auto) (0.24-0.36) K/mm3 Eos # (Auto) (0.04-0.36) K/mm3 Baso # (Auto) (0.01-0.08) K/mm3 Sodium (136-145) mEq/L Potassium (3.5-5.1) mEq/L Chloride (98-107) mEq/L Carbon Dioxide (21-32) mEq/L Anion Gap (5-15) BUN (7-18) mg/dL Creatinine (0.55-1.02) mg/dL Est Cr Clr Drug Dosing mL/min Estimated GFR (MDRD) (>60) mL/min BUN/Creatinine Ratio (14-18) Glucose (83-115) mg/dL POC Glucose 174 H (83-110) mg/dL Calcium (8.5-10.1) mg/dL Magnesium (1.8-2.4) mg/dl NT-Pro-B Natriuret Pep (0-450) pg/mL Med Orders - Current: Current Medications Amiodarone HCl (Cordarone) 400 mg PO BID [facility] Last Admin: 02/14/18 08:19 Dose: 400 mg Apixaban (Eliquis) 2.5 mg PO BID [facility] Last Admin: 02/14/18 08:20 Dose: 2.5 mg Aspirin (Halfprin) 162 mg PO DAILY [facility] Last Admin: 02/14/18 08:19 Dose: 162 mg Calcium Carbonate (Calcium Carbonate/Vitamin D 600 Mg-200 Unit) 1 tab PO BID [facility] Last Admin: 02/14/18 08:22 Dose: 1 tab Dextrose/Water (Dextrose 50% In Water) 50 ml IVPUSH ASDIRECTED PRN PRN Reason: Hypoglycemia Furosemide (Lasix) 20 mg IVPUSH DAILY [facility] Last Admin: 02/14/18 08:20 Dose: 20 mg Glimepiride (Glimepiride) 4 mg PO WITHBREAKFAST [facility] Last Admin: 02/14/18 07:01 Dose: 4 mg Insulin Aspart (Novolog) 0 unit SUBCUT QIDACANDBED [facility]; Protocol Last Admin: 02/14/18 07:00 Dose: 1 unit Metoprolol Tartrate (Lopressor) 5 mg IVPUSH Q6H PRN PRN Reason: heart rate >120 Last Admin: 02/12/18 08:25 Dose: 5 mg Metoprolol Tartrate (Lopressor) 25 mg PO TID [facility] Last Admin: 02/14/18 08:21 Dose: 25 mg Multivitamins (Thera) 1 each PO DAILY [facility] Last Admin: 02/14/18 08:20 Dose: 1 each Potassium Chloride (Klor-Con M20) 40 meq PO DAILY [facility] Last Admin: 02/14/18 08:16 Dose: 40 meq Quetiapine Fumarate (Seroquel) 50 mg PO BID [facility] Last Admin: 02/14/18 08:21 Dose: 50 mg Saccharomyces Boulardii (Florastor) 250 mg PO TID [facility] Last Admin: 02/14/18 08:21 Dose: 250 mg Simvastatin (Zocor) 10 mg PO BEDTIME [facility] Last Admin: 02/13/18 20:00 Dose: 10 mg Sodium Chloride (Saline Flush) 10 ml FLUSH ASDIRECTED PRN PRN Reason: Keep Vein Open Last Admin: 02/11/18 12:55 Dose: 10 ml Tramadol HCl (Ultram) 50 mg PO Q6H PRN PRN Reason: Pain Discontinued Medications Diltiazem HCl (Diltiazem) 10 mg IVPUSH ONETIME ONE Stop: 02/11/18 13:47 Last Admin: 02/11/18 16:20 Dose: 10 mg Diltiazem HCl (Diltiazem) Confirm Administered Dose 125 mg .ROUTE .STK-MED ONE Stop: 02/11/18 16:14 Last Admin: 02/11/18 16:47 Dose: Not Given Enoxaparin Sodium (Lovenox) 55 mg SUBCUT DAILY [facility] Enoxaparin Sodium (Lovenox) 55 mg SUBCUT ONETIME ONE Stop: 02/11/18 21:52 Last Admin: 02/11/18 22:04 Dose: 55 mg Enoxaparin Sodium (Lovenox) 55 mg SUBCUT QPM [facility] Last Admin: 02/12/18 18:02 Dose: 55 mg Sodium Chloride (Normal Saline) 1,000 mls @ 150 mls/hr IV ASDIRECTED [facility] Sodium Chloride (Normal Saline) 250 mls @ 999 mls/hr IV .BOLUS ONE Stop: 02/11/18 12:56 Last Admin: 02/11/18 12:55 Dose: 999 mls/hr Diltiazem HCl 125 mg/ Sodium (Chloride) 125 mls @ 10 mls/hr IV TITRATE ONE; Protocol Stop: 02/12/18 02:16 Last Titration: 02/11/18 18:45 Dose: 15 mg/hr, 15 mls/hr Magnesium Sulfate 2 gm/ Premix 50 mls @ 25 mls/hr IV ONETIME ONE Stop: 02/11/18 15:47 Last Admin: 02/11/18 14:33 Dose: 25 mls/hr Amiodarone HCl/Dextrose (Nexterone In Dextrose 360 Mg/200 Ml) 360 mg in 200 mls @ 33.333 mls/hr IV ASDIRECTED [facility]; Protocol Stop: 02/13/18 21:00 Last Admin: 02/13/18 15:42 Dose: 16 mls/hr Amiodarone HCl/Dextrose 150 mg (/ Premix) 100 mls @ 600 mls/hr IV NOW ONE Stop: 02/11/18 20:39 Last Admin: 02/11/18 20:50 Dose: 600 mls/hr Magnesium Sulfate 2 gm/ Premix 50 mls @ 25 mls/hr IV ONETIME ONE Stop: 02/12/18 11:26 Last Admin: 02/12/18 10:31 Dose: 25 mls/hr Amiodarone HCl/Dextrose (Nexterone In Dextrose 150 Mg/100 Ml) 100 mls @ 582.524 mls/hr IV .BOLUS ONE Stop: 02/12/18 09:39 Last Admin: 02/12/18 10:16 Dose: 582.524 mls/hr Amiodarone HCl 300 mg/ (Dextrose/Water) 106 mls @ 300 mls/hr IV .BOLUS ONE Stop: 02/12/18 18:40 Last Admin: 02/12/18 18:57 Dose: 300 mls/hr [facility] Metoprolol Tartrate (Lopressor) 50 mg PO Q12HR [facility] Last Admin: 02/13/18 09:47 Dose: 50 mg - Exam Quality Assessment: No: Supplemental Oxygen General: Alert, Cooperative, No Acute Distress, Other (Oriented to person only ) HEENT: Pupils Equal, Pupils Reactive, EOMI, Mucous Membr. Moist/[place] Neck: Supple, Trachea Midline. No: Lymphadenopathy Lungs: Clear to Auscultation, Normal Respiratory Effort Cardiovascular: Regular Rate, Regular Rhythm, No Murmurs GI/Abdominal Exam: Normal Bowel Sounds, Soft, Non-Tender, No Distention (Female) Exam: Deferred Back Exam: Normal Inspection, Decreased Range of Motion Extremities: Normal Inspection, Normal Range of Motion, Non-Tender, No Pedal Edema Peripheral Pulses: 1+: Radial (L), Radial (R), Posterior Tibial (L), Posterior Tibial (R), Dorsalis Pedis (L), Dorsalis Pedis (R) Skin: Warm, Dry, Intact Neurological: No New Focal Deficit, Strength Equal Bilateral, Cranial Nerves Intact (grossly ) Psy/Mental Status: Alert, Normal Affect, Normal Mood - Problem List Review Problem List Initiated/Reviewed/Updated: Yes - My Orders Last 24 Hours: My Active Orders 02/13/18 11:38 Up to Chair [RC] ASDIRECTED Consult to Physical Therapy [PT Evaluation and Treatment] [CONS] Routine 02/13/18 11:39 Bedrest Bathroom Privileges [RC] ASDIRECTED May Shower [RC] ASDIRECTED Consult to Occupational Therapy [OT Evaluation and Treatment] [CONS] Routine 02/13/18 15:51 Consult to Spiritual Care [CONS] Routine 02/13/18 21:00 Apixaban [Eliquis] 2.5 mg PO BID - Plan Plan:: Impression: Acute: Narrow Complex Tachycardia * EKG in ED showed atrial flutter --> Unknown if new or chronic * Received Cardizem bolus and drip in ED * Amiodarone drip d/c'd at 21:00 on 02/13/18 with amiodarone 400 mg po BID to be initiated 1 hour prior --> adjust to amiodarone 800 mg BID with heart rate still elevated (109-117) * Metoprolol tartrate 25 mg po TID ordered (metoprolol succinate 100 mg po daily at home) * Cardiac enzymes negative * She is asymptomatic * TSH 1.743 * She received Lovenox 55 mg SC x 1 --> discussed anticoagulation with patient' s PCP, Dr. Keith, with decision made to initiate NOAC --> will discontinue Lovenox and start Eliquis 2.5 mg po BID with first dose given 02/13/18 in evening HFrEF * Today 3354, yesterday 1499 and 1103 in ED * 2D Echo report read as EF 25-30%, moderate to severe decreased left ventricle systolic function, and severe left atrial dilation * She denies dyspnea * Order for Lasix 20 mg IV push daily * Metoprolol tartrate 25 mg po TID ordered (metoprolol succinate 100 mg po daily at home) * Valsartan/HCTZ currently held with diuresis * Recommend follow-up with lime burner at discharge Type 2 DM * Glucose range from 115-287 during admission * Continue glimeperide 4 mg po with breakfast * Lantus 6 units q HS held * AccuChecks QID (AC and HS) with Low dose SSI --> increased to medium scale SSI on 02/13/18 * Diabetic diet * Monitor Renal insufficiency * Cr 1.0, eGFR 53 today and yesterday; Cr 1.1 and eGFR 47 in ED * Appears to be near baseline per records * Monitor Weakness, Acute on Chronic * Exacerbated by current medical state * She is a resident of [facility] * PT/OT Resolved: Hypomagnesemia, resolved * 1.4 in ED, 1.9 today * Received Mg sulfate 2 gm IV x 1 * Monitor Chronic: HTN HLD CVA C diff Depression Glaucoma Alzheimer's Dementia Type 2 DM Plan: ICU --> possible transfer to Med/Surg tomorrow or with tentative plan for discharge 02/17/18 IV Amiodarone, transition to oral Begin oral AV nessa blockers Daily labs Home meds as indicated Mechanical Soft, Diabetic diet DVT prophylaxis: Eliquis PT/OT Code Status: DNR/DNI PCP: Dr. Jonny Keith LOS > 96 hrs due to prolonged response to treatment
[2018-02-14] MEDS ORDERED: Metoprolol Tartrate 5 MG/5 ML SDV IVPUSH PRN (12:38)
[2018-02-14] MEDS: Simvastatin 10 MG Tab PO SCH (20:13)
[2018-02-15] MEDS: Insulin Aspart 100 Units/ML 3 ML Pen SUBCUT SCH ×4 (08:07→21:51)
[2018-02-15] MEDS: Multivitamins,Therapeutic Tab PO SCH (08:49)
[2018-02-15] MEDS: Calcium Carbonate/Vitamin D3 600 MG-200 Units Tab PO SCH ×2 (08:49→21:39)
[2018-02-15] MEDS: Potassium Chloride 20 MEQ Tab.ER PO SCH (08:49)
[2018-02-15] MEDS: Amiodarone 200 MG Tab PO SCH ×2 (08:49→21:40)
[2018-02-15] MEDS: Aspirin 81 MG Tab.EC PO SCH (08:49)
[2018-02-15] MEDS: Apixaban 5 MG Tab PO SCH ×2 (08:50→21:39)
[2018-02-15] MEDS: Metoprolol Tartrate 25 MG Tab PO SCH ×3 (08:52→21:40)
[2018-02-15] MEDS: Saccharomyces Boulardii (Probiotic) 250 MG Cap PO SCH ×2 (08:52→21:38)
[2018-02-15] MEDS: Furosemide 20 MG/2 ML VIAL IVPUSH SCH (08:53)
[2018-02-15] MEDS: Glimepiride 4 MG Tab PO SCH (09:07)
[2018-02-15] MEDS: QUEtiapine 25 MG Tab PO SCH ×2 (09:52→21:39)
[2018-02-15] MEDS ORDERED: Magnesium Sulfate/Water 2 GM in Premix Bag 1 BAG IV ONE (09:57)
[2018-02-15] MEDS: cefTRIAXone 2 GM in Sodium Chloride 0.9% 100 ML IV SCH (12:14)
--- NOTE | 2018-02-15 14:42 | PCM.PN ---
- General Info Date of Service: 02/15/18 Functional Status: Reports: Tolerating Diet, Urinating - Review of Systems General: Reports: No Symptoms HEENT: Reports: No Symptoms Pulmonary: Reports: No Symptoms Cardiovascular: Reports: No Symptoms Gastrointestinal: Reports: No Symptoms Genitourinary: Reports: No Symptoms Musculoskeletal: Reports: No Symptoms Skin: Reports: No Symptoms Neurological: Reports: No Symptoms Psychiatric: Reports: No Symptoms - Patient Data Vitals - Most Recent: Last Vital Signs Temp 36.6 C 02/15/18 12:00 Pulse 101 H 02/15/18 14:29 Resp 22 H 02/15/18 12:00 BP 129/66 02/15/18 14:29 Pulse Ox 98 02/15/18 12:00 Weight - Most Recent: 54.749 kg I&O - Last 24 Hours: Intake & Output 02/14/18 02/15/18 02/15/18 22:59 06:59 14:59 Intake Total 360 250 442 Balance 360 250 442 Lab Results Last 24 Hours: Laboratory Results - last 24 hr 02/14/18 02/14/18 02/15/18 Range/Units 16:53 21:37 05:47 WBC 6.55 (3.98-10.04) K/mm3 RBC 4.18 (3.98-5.22) M/mm3 Hgb 10.9 L (11.2-15.7) gm/L Hct 34.0 L (34.1-44.9) % MCV 81.3 (79.4-94.8) fl MCH 26.1 (25.6-32.2) pg MCHC 32.1 L (32.2-35.5) g/dl RDW Std Deviation 43.1 (36.4-46.3) fL Plt Count 222 (182-369) K/mm3 MPV 10.6 (9.4-12.3) fl Neut % (Auto) 57.6 (34.0-71.1) % Lymph % (Auto) 27.0 (19.3-51.7) % [place] % (Auto) 10.1 (4.7-12.5) % Eos % (Auto) 4.6 (0.7-5.8) Baso % (Auto) 0.5 (0.1-1.2) % Neut # (Auto) 3.78 (1.56-6.13) K/mm3 Lymph # (Auto) 1.77 (1.18-3.74) K/mm3 [place] # (Auto) 0.66 H (0.24-0.36) K/mm3 Eos # (Auto) 0.30 (0.04-0.36) K/mm3 Baso # (Auto) 0.03 (0.01-0.08) K/mm3 Sodium (136-145) mEq/L Potassium (3.5-5.1) mEq/L Chloride (98-107) mEq/L Carbon Dioxide (21-32) mEq/L Anion Gap (5-15) BUN (7-18) mg/dL Creatinine (0.55-1.02) mg/dL Est Cr Clr Drug Dosing mL/min Estimated GFR (MDRD) (>60) mL/min BUN/Creatinine Ratio (14-18) Glucose (83-115) mg/dL POC Glucose 179 H 218 H (83-110) mg/dL Calcium (8.5-10.1) mg/dL Magnesium (1.8-2.4) mg/dl 02/15/18 02/15/18 02/15/18 Range/Units 05:47 06:48 12:19 WBC (3.98-10.04) K/mm3 RBC (3.98-5.22) M/mm3 Hgb (11.2-15.7) gm/L Hct (34.1-44.9) % MCV (79.4-94.8) fl MCH (25.6-32.2) pg MCHC (32.2-35.5) g/dl RDW Std Deviation (36.4-46.3) fL Plt Count (182-369) K/mm3 MPV (9.4-12.3) fl Neut % (Auto) (34.0-71.1) % Lymph % (Auto) (19.3-51.7) % [place] % (Auto) (4.7-12.5) % Eos % (Auto) (0.7-5.8) Baso % (Auto) (0.1-1.2) % Neut # (Auto) (1.56-6.13) K/mm3 Lymph # (Auto) (1.18-3.74) K/mm3 [place] # (Auto) (0.24-0.36) K/mm3 Eos # (Auto) (0.04-0.36) K/mm3 Baso # (Auto) (0.01-0.08) K/mm3 Sodium 143 (136-145) mEq/L Potassium 4.0 (3.5-5.1) mEq/L Chloride 108 H (98-107) mEq/L Carbon Dioxide 25 (21-32) mEq/L Anion Gap 14.0 (5-15) BUN 29 H (7-18) mg/dL Creatinine 1.2 H (0.55-1.02) mg/dL Est Cr Clr Drug Dosing 28.35 mL/min Estimated GFR (MDRD) 43 (>60) mL/min BUN/Creatinine Ratio 24.2 H (14-18) Glucose 150 H (83-115) mg/dL POC Glucose 169 H 174 H (83-110) mg/dL Calcium 9.3 (8.5-10.1) mg/dL Magnesium 1.7 L (1.8-2.4) mg/dl Sebastian Results Last 24 Hours: Microbiology 02/12/18 21:05 Urine Culture - Final Urine, Clean Catch Escherichia Coli Med Orders - Current: Current Medications Amiodarone HCl (Cordarone) 800 mg PO BID [facility] Last Admin: 02/15/18 08:49 Dose: 800 mg Apixaban (Eliquis) 2.5 mg PO BID [facility] Last Admin: 02/15/18 08:50 Dose: 2.5 mg Aspirin (Halfprin) 162 mg PO DAILY [facility] Last Admin: 02/15/18 08:49 Dose: 162 mg Calcium Carbonate (Calcium Carbonate/Vitamin D 600 Mg-200 Unit) 1 tab PO BID [facility] Last Admin: 02/15/18 08:49 Dose: 1 tab Dextrose/Water (Dextrose 50% In Water) 50 ml IVPUSH ASDIRECTED PRN PRN Reason: Hypoglycemia Furosemide (Lasix) 20 mg IVPUSH DAILY [facility] Last Admin: 02/15/18 08:53 Dose: 20 mg Glimepiride (Glimepiride) 4 mg PO WITHBREAKFAST [facility] Last Admin: 02/15/18 09:07 Dose: 4 mg Ceftriaxone Sodium 2 gm/ (Sodium Chloride) 100 mls @ 100 mls/hr IV Q24H [facility] Last Admin: 02/15/18 12:14 Dose: 100 mls/hr Insulin Aspart (Novolog) 0 unit SUBCUT QIDACANDBED [facility]; Protocol Last Admin: 02/15/18 12:20 Dose: 2 units Metoprolol Tartrate (Lopressor) 5 mg IVPUSH Q6H PRN PRN Reason: Tachycardia Last Admin: 02/14/18 13:18 Dose: 5 mg Metoprolol Tartrate (Lopressor) 50 mg PO TID [facility] Last Admin: 02/15/18 14:29 Dose: 50 mg Multivitamins (Thera) 1 each PO DAILY [facility] Last Admin: 02/15/18 08:49 Dose: 1 each Potassium Chloride (Klor-Con M20) 40 meq PO DAILY [facility] Last Admin: 02/15/18 08:49 Dose: 40 meq Quetiapine Fumarate (Seroquel) 25 mg PO BID [facility] Saccharomyces Boulardii (Florastor) 250 mg PO BID [facility] Last Admin: 02/15/18 08:52 Dose: 250 mg Simvastatin (Zocor) 10 mg PO BEDTIME [facility] Last Admin: 02/14/18 20:13 Dose: 10 mg Sodium Chloride (Saline Flush) 10 ml FLUSH ASDIRECTED PRN PRN Reason: Keep Vein Open Last Admin: 02/11/18 12:55 Dose: 10 ml Tramadol HCl (Ultram) 50 mg PO Q6H PRN PRN Reason: Pain Discontinued Medications Amiodarone HCl (Cordarone) 400 mg PO BID [facility] Last Admin: 02/14/18 08:19 Dose: 400 mg Diltiazem HCl (Diltiazem) 10 mg IVPUSH ONETIME ONE Stop: 02/11/18 13:47 Last Admin: 02/11/18 16:20 Dose: 10 mg Diltiazem HCl (Diltiazem) Confirm Administered Dose 125 mg .ROUTE .STK-MED ONE Stop: 02/11/18 16:14 Last Admin: 02/11/18 16:47 Dose: Not Given Enoxaparin Sodium (Lovenox) 55 mg SUBCUT DAILY [facility] Enoxaparin Sodium (Lovenox) 55 mg SUBCUT ONETIME ONE Stop: 02/11/18 21:52 Last Admin: 02/11/18 22:04 Dose: 55 mg Enoxaparin Sodium (Lovenox) 55 mg SUBCUT QPM [facility] Last Admin: 02/12/18 18:02 Dose: 55 mg Sodium Chloride (Normal Saline) 1,000 mls @ 150 mls/hr IV ASDIRECTED [facility] Sodium Chloride (Normal Saline) 250 mls @ 999 mls/hr IV .BOLUS ONE Stop: 02/11/18 12:56 Last Admin: 02/11/18 12:55 Dose: 999 mls/hr Diltiazem HCl 125 mg/ Sodium (Chloride) 125 mls @ 10 mls/hr IV TITRATE ONE; Protocol Stop: 02/12/18 02:16 Last Titration: 02/11/18 18:45 Dose: 15 mg/hr, 15 mls/hr Magnesium Sulfate 2 gm/ Premix 50 mls @ 25 mls/hr IV ONETIME ONE Stop: 02/11/18 15:47 Last Admin: 02/11/18 14:33 Dose: 25 mls/hr Amiodarone HCl/Dextrose (Nexterone In Dextrose 360 Mg/200 Ml) 360 mg in 200 mls @ 33.333 mls/hr IV ASDIRECTED [facility]; Protocol Stop: 02/13/18 21:00 Last Admin: 02/13/18 15:42 Dose: 16 mls/hr Amiodarone HCl/Dextrose 150 mg (/ Premix) 100 mls @ 600 mls/hr IV NOW ONE Stop: 02/11/18 20:39 Last Admin: 02/11/18 20:50 Dose: 600 mls/hr Magnesium Sulfate 2 gm/ Premix 50 mls @ 25 mls/hr IV ONETIME ONE Stop: 02/12/18 11:26 Last Admin: 02/12/18 10:31 Dose: 25 mls/hr Amiodarone HCl/Dextrose (Nexterone In Dextrose 150 Mg/100 Ml) 100 mls @ 582.524 mls/hr IV .BOLUS ONE Stop: 02/12/18 09:39 Last Admin: 02/12/18 10:16 Dose: 582.524 mls/hr Amiodarone HCl 300 mg/ (Dextrose/Water) 106 mls @ 300 mls/hr IV .BOLUS ONE Stop: 02/12/18 18:40 Last Admin: 02/12/18 18:57 Dose: 300 mls/hr Magnesium Sulfate 2 gm/ Premix 50 mls @ 25 mls/hr IV ONETIME ONE Stop: 02/15/18 11:56 Last Admin: 02/15/18 10:08 Dose: 25 mls/hr Insulin Aspart (Novolog) 0 unit SUBCUT QIDACANDBED [facility]; Protocol Last Admin: 02/14/18 12:06 Dose: Not Given [facility] Metoprolol Tartrate (Lopressor) 5 mg IVPUSH Q6H PRN PRN Reason: heart rate >120 Last Admin: 02/12/18 08:25 Dose: 5 mg Metoprolol Tartrate (Lopressor) 50 mg PO Q12HR [facility] Last Admin: 02/13/18 09:47 Dose: 50 mg Metoprolol Tartrate (Lopressor) 25 mg PO TID [facility] Last Admin: 02/15/18 08:52 Dose: 25 mg Quetiapine Fumarate (Seroquel) 50 mg PO BID [facility] Last Admin: 02/15/18 09:52 Dose: Not Given Saccharomyces Boulardii (Florastor) 250 mg PO TID [facility] Last Admin: 02/14/18 20:12 Dose: 250 mg - Exam Quality Assessment: Supplemental Oxygen, DVT Prophylaxis General: Alert, Oriented, Cooperative, No Acute Distress HEENT: Pupils Equal, Pupils Reactive, EOMI Neck: Trachea Midline, No JVD Lungs: Normal Respiratory Effort Cardiovascular: Regular Rate, Regular Rhythm GI/Abdominal Exam: Normal Bowel Sounds, Soft, Non-Tender, No Organomegaly, No Distention (Female) Exam: Deferred Back Exam: Normal Inspection Extremities: Normal Inspection, Normal Capillary Refill Skin: Warm Neurological: No New Focal Deficit Psy/Mental Status: Alert - Problem List & Annotations (1) Atrial flutter by electrocardiogram SNOMED Code(s): 931697184 Code(s): I48.92 - UNSPECIFIED ATRIAL FLUTTER Status: Acute Current Visit : Yes (2) Dementia SNOMED Code(s): 41236044 Code(s): F03.90 - UNSPECIFIED DEMENTIA WITHOUT BEHAVIORAL DISTURBANCE Status: Acute Current Visit: No Qualifiers: Dementia type: Alzheimer's disease Alzheimer's disease onset: late-onset Dementia behavioral disturbance: with behavioral disturbance Qualified Code(s) : G30.1 - Alzheimer's disease with late onset (3) HTN, Benign hypertension SNOMED Code(s): 31390488 Code(s): I10 - ESSENTIAL (PRIMARY) HYPERTENSION Status: Acute Current Visit: No - Problem List Review Problem List Initiated/Reviewed/Updated: Yes - My Orders Last 24 Hours: My Active Orders 02/15/18 09:00 Saccharomyces Boulardii [Florastor] 250 mg PO BID 02/15/18 12:00 cefTRIAXone [Rocephin] 2 gm Sodium Chloride 0.9% [Normal Saline] 100 ml IV Q24H 02/15/18 15:00 Metoprolol Tartrate [Lopressor] 50 mg PO TID 02/15/18 21:00 QUEtiapine [SEROquel] 25 mg PO BID - Plan Plan:: Impression: Acute: Narrow Complex Tachycardia * EKG in ED showed atrial flutter --> Unknown if new or chronic * Received Cardizem bolus and drip in ED * Amiodarone drip d/c'd at 21:00 on 02/13/18 with amiodarone 400 mg po BID to be initiated 1 hour prior --> adjust to amiodarone 800 mg BID with heart rate still elevated (109-117) * Metoprolol tartrate 25 mg po TID ordered (metoprolol succinate 100 mg po daily at home) * Cardiac enzymes negative * She is asymptomatic * TSH 1.743 * She received Lovenox 55 mg SC x 1 --> discussed anticoagulation with patient' s PCP, Dr. Keith, with decision made to initiate NOAC --> will discontinue Lovenox and start Eliquis 2.5 mg po BID with first dose given 02/13/18 in evening HFrEF * Today 3354, yesterday 1499 and 1103 in ED * 2D Echo report read as EF 25-30%, moderate to severe decreased left ventricle systolic function, and severe left atrial dilation * She denies dyspnea * Order for Lasix 20 mg IV push daily * Metoprolol tartrate 25 mg po TID ordered (metoprolol succinate 100 mg po daily at home) * Valsartan/HCTZ currently held with diuresis * Recommend follow-up with night clerk at discharge Type 2 DM * Glucose range from 115-287 during admission * Continue glimeperide 4 mg po with breakfast * Lantus 6 units q HS held * AccuChecks QID (AC and HS) with Low dose SSI --> increased to medium scale SSI on 02/13/18 * Diabetic diet * Monitor Renal insufficiency * Cr 1.0, eGFR 53 today and yesterday; Cr 1.1 and eGFR 47 in ED * Appears to be near baseline per records * Monitor Weakness, Acute on Chronic * Exacerbated by current medical state * She is a resident of [facility] * PT/OT Resolved: Hypomagnesemia, resolved * 1.4 in ED, 1.9 today * Received Mg sulfate 2 gm IV x 1 * Monitor Chronic: HTN HLD CVA C diff Depression Glaucoma Alzheimer's Dementia Type 2 DM Plan: ICU --> possible transfer to Med/Surg tomorrow or with tentative plan for discharge 02/17/18 IV Amiodarone, transition to oral Begin oral AV nessa blockers Daily labs Home meds as indicated Mechanical Soft, Diabetic diet DVT prophylaxis: Danita PT/OT Code Status: DNR/DNI PCP: Dr. Jonny Keith LOS > 96 hrs due to prolonged response to treatment
[2018-02-15] MEDS: traMADol 50 MG Tab PO PRN (16:53)
[2018-02-15] MEDS: Simvastatin 10 MG Tab PO SCH (21:38)
[2018-02-16] MEDS: Glimepiride 4 MG Tab PO SCH (06:42)
[2018-02-16] MEDS: Insulin Aspart 100 Units/ML 3 ML Pen SUBCUT SCH ×4 (06:45→21:08)
[2018-02-16] MEDS ORDERED: Magnesium Sulfate/Water 2 GM in Premix Bag 1 BAG IV ONE (08:32)
[2018-02-16] MEDS: Calcium Carbonate/Vitamin D3 600 MG-200 Units Tab PO SCH ×2 (09:10→20:00)
[2018-02-16] MEDS: Multivitamins,Therapeutic Tab PO SCH (09:10)
[2018-02-16] MEDS: Potassium Chloride 20 MEQ Tab.ER PO SCH (09:11)
[2018-02-16] MEDS: Amiodarone 200 MG Tab PO SCH ×2 (09:11→20:00)
[2018-02-16] MEDS: QUEtiapine 25 MG Tab PO SCH ×2 (09:11→21:13)
[2018-02-16] MEDS: Aspirin 81 MG Tab.EC PO SCH (09:11)
[2018-02-16] MEDS: Saccharomyces Boulardii (Probiotic) 250 MG Cap PO SCH ×2 (09:11→20:00)
[2018-02-16] MEDS: Metoprolol Tartrate 25 MG Tab PO SCH ×4 (09:12→21:04)
[2018-02-16] MEDS: Apixaban 5 MG Tab PO SCH ×2 (09:12→20:00)
[2018-02-16] MEDS: Furosemide 20 MG/2 ML VIAL IVPUSH SCH (09:13)
--- NOTE | 2018-02-16 10:50 | PCM.PN ---
- General Info Date of Service: 02/16/18 Admission Dx/Problem (Free Text): Admission Diagnosis/Problem Admission Diagnosis/Problem Atrial fibrillation with rapid ventricular response Subjective Update: In to see Morena. She is resting comfortably in bed. She remains oriented to person only, but is able to answer some questions appropriately. She denies chest pain, palpitations, or dyspnea. She also denies any GI/ complaints. Nursing reports intakes remain poor to fair. Functional Status: Reports: Pain Controlled, Tolerating Diet, Ambulating, Urinating - Review of Systems General: Reports: No Symptoms. Denies: Fever, Chills HEENT: Reports: No Symptoms. Denies: Sinus Congestion, Sore Throat Pulmonary: Reports: No Symptoms. Denies: Shortness of Breath, Cough Cardiovascular: Reports: No Symptoms. Denies: Chest Pain, Palpitations Gastrointestinal: Reports: No Symptoms. Denies: Abdominal Pain, Constipation, Diarrhea, Nausea, Vomiting Genitourinary: Reports: No Symptoms. Denies: Dysuria, Frequency, Burning Musculoskeletal: Reports: No Symptoms. Denies: Joint Pain Skin: Reports: No Symptoms Neurological: Reports: No Symptoms. Denies: Dizziness, Headache Psychiatric: Reports: No Symptoms - Patient Data Vitals - Most Recent: Last Vital Signs Temp 97.4 F 02/16/18 08:00 Pulse 101 H 02/16/18 09:12 Resp 15 02/16/18 08:00 BP 151/98 H 02/16/18 09:12 Pulse Ox 97 02/16/18 08:00 Weight - Most Recent: 120 lb 6.4 oz I&O - Last 24 Hours: Intake & Output 02/15/18 02/16/18 02/16/18 22:59 06:59 14:59 Intake Total 220 50 Balance 220 50 Lab Results Last 24 Hours: Laboratory Results - last 24 hr 02/15/18 02/15/18 02/15/18 Range/Units 12:19 17:02 21:48 POC Glucose 174 H 217 H 273 H (83-110) mg/dL Sebastian Results Last 24 Hours: Microbiology 02/12/18 21:05 Urine Culture - Final Urine, Clean Catch Escherichia Coli Med Orders - Current: Current Medications Amiodarone HCl (Cordarone) 800 mg PO BID [facility] Last Admin: 02/16/18 09:11 Dose: 800 mg Apixaban (Eliquis) 2.5 mg PO BID [facility] Last Admin: 02/16/18 09:12 Dose: 2.5 mg Aspirin (Halfprin) 162 mg PO DAILY [facility] Last Admin: 02/16/18 09:11 Dose: 162 mg Calcium Carbonate (Calcium Carbonate/Vitamin D 600 Mg-200 Unit) 1 tab PO BID [facility] Last Admin: 02/16/18 09:10 Dose: 1 tab Dextrose/Water (Dextrose 50% In Water) 50 ml IVPUSH ASDIRECTED PRN PRN Reason: Hypoglycemia Furosemide (Lasix) 20 mg IVPUSH DAILY [facility] Last Admin: 02/16/18 09:13 Dose: 20 mg Glimepiride (Glimepiride) 4 mg PO WITHBREAKFAST [facility] Last Admin: 02/16/18 06:42 Dose: 4 mg Ceftriaxone Sodium 2 gm/ (Sodium Chloride) 100 mls @ 100 mls/hr IV Q24H [facility] Last Admin: 02/15/18 12:14 Dose: 100 mls/hr Insulin Aspart (Novolog) 0 unit SUBCUT QIDACANDBED [facility]; Protocol Last Admin: 02/16/18 06:45 Dose: 2 units Metoprolol Tartrate (Lopressor) 5 mg IVPUSH Q6H PRN PRN Reason: Tachycardia Last Admin: 02/14/18 13:18 Dose: 5 mg Metoprolol Tartrate (Lopressor) 75 mg PO Q6H [facility] Multivitamins (Thera) 1 each PO DAILY [facility] Last Admin: 02/16/18 09:10 Dose: 1 each Potassium Chloride (Klor-Con M20) 40 meq PO DAILY [facility] Last Admin: 02/16/18 09:11 Dose: 40 meq Quetiapine Fumarate (Seroquel) 25 mg PO BID [facility] Last Admin: 02/16/18 09:11 Dose: 25 mg Saccharomyces Boulardii (Florastor) 250 mg PO BID [facility] Last Admin: 02/16/18 09:11 Dose: 250 mg Simvastatin (Zocor) 10 mg PO BEDTIME [facility] Last Admin: 02/15/18 21:38 Dose: 10 mg Sodium Chloride (Saline Flush) 10 ml FLUSH ASDIRECTED PRN PRN Reason: Keep Vein Open Last Admin: 02/11/18 12:55 Dose: 10 ml Tramadol HCl (Ultram) 50 mg PO Q6H PRN PRN Reason: Pain Last Admin: 02/15/18 16:53 Dose: 50 mg Discontinued Medications Amiodarone HCl (Cordarone) 400 mg PO BID [facility] Last Admin: 02/14/18 08:19 Dose: 400 mg Diltiazem HCl (Diltiazem) 10 mg IVPUSH ONETIME ONE Stop: 02/11/18 13:47 Last Admin: 02/11/18 16:20 Dose: 10 mg Diltiazem HCl (Diltiazem) Confirm Administered Dose 125 mg .ROUTE .STK-MED ONE Stop: 02/11/18 16:14 Last Admin: 02/11/18 16:47 Dose: Not Given Enoxaparin Sodium (Lovenox) 55 mg SUBCUT DAILY [facility] Enoxaparin Sodium (Lovenox) 55 mg SUBCUT ONETIME ONE Stop: 02/11/18 21:52 Last Admin: 02/11/18 22:04 Dose: 55 mg Enoxaparin Sodium (Lovenox) 55 mg SUBCUT QPM [facility] Last Admin: 02/12/18 18:02 Dose: 55 mg Sodium Chloride (Normal Saline) 1,000 mls @ 150 mls/hr IV ASDIRECTED [facility] Sodium Chloride (Normal Saline) 250 mls @ 999 mls/hr IV .BOLUS ONE Stop: 02/11/18 12:56 Last Admin: 02/11/18 12:55 Dose: 999 mls/hr Diltiazem HCl 125 mg/ Sodium (Chloride) 125 mls @ 10 mls/hr IV TITRATE ONE; Protocol Stop: 02/12/18 02:16 Last Titration: 02/11/18 18:45 Dose: 15 mg/hr, 15 mls/hr Magnesium Sulfate 2 gm/ Premix 50 mls @ 25 mls/hr IV ONETIME ONE Stop: 02/11/18 15:47 Last Admin: 02/11/18 14:33 Dose: 25 mls/hr Amiodarone HCl/Dextrose (Nexterone In Dextrose 360 Mg/200 Ml) 360 mg in 200 mls @ 33.333 mls/hr IV ASDIRECTED [facility]; Protocol Stop: 02/13/18 21:00 Last Admin: 02/13/18 15:42 Dose: 16 mls/hr Amiodarone HCl/Dextrose 150 mg (/ Premix) 100 mls @ 600 mls/hr IV NOW ONE Stop: 02/11/18 20:39 Last Admin: 02/11/18 20:50 Dose: 600 mls/hr Magnesium Sulfate 2 gm/ Premix 50 mls @ 25 mls/hr IV ONETIME ONE Stop: 02/12/18 11:26 Last Admin: 02/12/18 10:31 Dose: 25 mls/hr Amiodarone HCl/Dextrose (Nexterone In Dextrose 150 Mg/100 Ml) 100 mls @ 582.524 mls/hr IV .BOLUS ONE Stop: 02/12/18 09:39 Last Admin: 02/12/18 10:16 Dose: 582.524 mls/hr Amiodarone HCl 300 mg/ (Dextrose/Water) 106 mls @ 300 mls/hr IV .BOLUS ONE Stop: 02/12/18 18:40 Last Admin: 02/12/18 18:57 Dose: 300 mls/hr Magnesium Sulfate 2 gm/ Premix 50 mls @ 25 mls/hr IV ONETIME ONE Stop: 02/15/18 11:56 Last Admin: 02/15/18 10:08 Dose: 25 mls/hr Magnesium Sulfate 2 gm/ Premix 50 mls @ 25 mls/hr IV ONETIME ONE Stop: 02/16/18 10:31 Last Admin: 02/16/18 09:10 Dose: 25 mls/hr Insulin Aspart (Novolog) 0 unit SUBCUT QIDACANDBED [facility]; Protocol Last Admin: 02/14/18 12:06 Dose: Not Given Metoprolol Succinate ([facility]l) [facility] Metoprolol Tartrate (Lopressor) 5 mg IVPUSH Q6H PRN PRN Reason: heart rate >120 Last Admin: 02/12/18 08:25 Dose: 5 mg Metoprolol Tartrate (Lopressor) 50 mg PO Q12HR [facility] Last Admin: 02/13/18 09:47 Dose: 50 mg Metoprolol Tartrate (Lopressor) 25 mg PO TID [facility] Last Admin: 02/15/18 08:52 Dose: 25 mg Metoprolol Tartrate (Lopressor) 50 mg PO TID [facility] Last Admin: 02/16/18 09:12 Dose: 50 mg Quetiapine Fumarate (Seroquel) 50 mg PO BID [facility] Last Admin: 02/15/18 09:52 Dose: Not Given Alba Lafleuri (Florastor) 250 mg PO TID [facility] Last Admin: 02/14/18 20:12 Dose: 250 mg - Exam Quality Assessment: No: Supplemental Oxygen General: Alert, Cooperative, No Acute Distress, Other (Oriented to person only) HEENT: Pupils Equal, Pupils Reactive, EOMI, Mucous Membr. Moist/[place] Neck: Supple, Trachea Midline. No: Lymphadenopathy Lungs: Clear to Auscultation, Normal Respiratory Effort Cardiovascular: Regular Rate, Regular Rhythm, No Murmurs GI/Abdominal Exam: Normal Bowel Sounds, Soft, Non-Tender, No Distention (Female) Exam: Deferred Back Exam: Normal Inspection, Decreased Range of Motion Extremities: Normal Inspection, Non-Tender, No Pedal Edema Peripheral Pulses: 1+: Radial (L), Radial (R), Posterior Tibial (L), Posterior Tibial (R), Dorsalis Pedis (L), Dorsalis Pedis (R) Skin: Warm, Dry, Intact Neurological: No New Focal Deficit, Strength Equal Bilateral, Cranial Nerves Intact (grossly) Psy/Mental Status: Alert, Normal Affect, Normal Mood - Problem List Review Problem List Initiated/Reviewed/Updated: Yes - Plan Plan:: Impression: Acute: Narrow Complex Tachycardia * EKG in ED showed atrial flutter --> Unknown if new or chronic * Received Cardizem bolus and drip in ED * Amiodarone drip d/c'd at 21:00 on 02/13/18 with amiodarone 400 mg po BID to be initiated 1 hour prior --> adjust to amiodarone 800 mg BID with heart rate still elevated (109-117) * Metoprolol tartrate 25 mg po TID ordered (metoprolol succinate 100 mg po daily at home) --> increased to 75 mg q 6 hr * Cardiac enzymes negative * She is asymptomatic * TSH 1.743 * She received Lovenox 55 mg SC x 1 --> discussed anticoagulation with patient' s PCP, Dr. Keith, with decision made to initiate NOAC --> will discontinue Lovenox and start Eliquis 2.5 mg po BID with first dose given 02/13/18 in evening HFrEF * Today 3354, yesterday 1499 and 1103 in ED * 2D Echo report read as EF 25-30%, moderate to severe decreased left ventricle systolic function, and severe left atrial dilation * She denies dyspnea * Order for Lasix 20 mg IV push daily --> discontinued and will order lasix 20 mg po daily for tomorrow and to continue after discharge * Metoprolol tartrate 25 mg po TID ordered (metoprolol succinate 100 mg po daily at home) --> increased to 75 mg q 6 hr * Valsartan/HCTZ currently held with diuresis --> when discharged, patient will remain on Valsartan 160 mg po daily ONLY * Recommend follow-up with licensed esthetician at discharge Type 2 DM * Glucose range from 115-287 during admission * Continue glimeperide 4 mg po with breakfast * Lantus 6 units q HS held * AccuChecks QID (AC and HS) with Low dose SSI --> increased to medium scale SSI on 02/13/18 * Diabetic diet * Monitor Renal insufficiency, stable * Cr 1.2 and eGFR 43 today; Cr 1.0 and eGFR 53 prior with Cr 1.1 and eGFR 47 in ED * Appears to be near baseline per records * Monitor Weakness, Acute on Chronic * Exacerbated by current medical state * She is a resident of [facility] * PT/OT UTI * Urine culture report: Ecoli * Ordered Rocephin 2 gm IV q 24 hrs, will be changed to Keflex po tomorrow Hypomagnesemia * 1.7 today, yesterday 1.9; 1.4 in ED * Received Mg sulfate 2 gm IV x 1; will order this again * Monitor Chronic: HTN HLD CVA C diff Depression Glaucoma Alzheimer's Dementia Type 2 DM Plan: ICU --> plan for discharge back to [facility] on 02/17/18 IV Amiodarone, transition to oral Begin oral AV nessa blockers Daily labs Home meds as indicated Mechanical Soft, Diabetic diet DVT prophylaxis: Danita PT/OT Code Status: DNR/DNI PCP: Dr. Jonny Keith LOS > 96 hrs due to prolonged response to treatment
[2018-02-16] MEDS: cefTRIAXone 2 GM in Sodium Chloride 0.9% 100 ML IV SCH (11:01)
[2018-02-16] MEDS: Simvastatin 10 MG Tab PO SCH (20:00)
[2018-02-17] MEDS: Metoprolol Tartrate 25 MG Tab PO SCH ×4 (03:14→21:25)
[2018-02-17] MEDS: Glimepiride 4 MG Tab PO SCH (06:04)
[2018-02-17] MEDS: Insulin Aspart 100 Units/ML 3 ML Pen SUBCUT SCH ×4 (06:11→21:24)
[2018-02-17] MEDS: traMADol 50 MG Tab PO PRN (08:03)
[2018-02-17] MEDS: Amiodarone 200 MG Tab PO SCH ×2 (08:06→20:20)
[2018-02-17] MEDS: Multivitamins,Therapeutic Tab PO SCH (08:06)
[2018-02-17] MEDS: Saccharomyces Boulardii (Probiotic) 250 MG Cap PO SCH ×2 (08:06→20:18)
[2018-02-17] MEDS: Aspirin 81 MG Tab.EC PO SCH (08:06)
[2018-02-17] MEDS: Potassium Chloride 20 MEQ Tab.ER PO SCH (08:07)
[2018-02-17] MEDS: Cephalexin 500 MG Cap PO SCH ×2 (08:07→20:19)
[2018-02-17] MEDS: Calcium Carbonate/Vitamin D3 600 MG-200 Units Tab PO SCH ×2 (08:07→20:19)
[2018-02-17] MEDS: Apixaban 5 MG Tab PO SCH ×2 (08:07→20:19)
[2018-02-17] MEDS: QUEtiapine 25 MG Tab PO SCH ×2 (08:07→20:19)
[2018-02-17] MEDS ORDERED: Furosemide 20 MG Tab PO SCH (09:00)
[2018-02-17] MEDS: Sodium Chloride 0.9% 1,000 ML IV SCH ×2 (12:53→23:21)
--- NOTE | 2018-02-17 15:08 | PCM.PN ---
- General Info Date of Service: 02/17/18 Admission Dx/Problem (Free Text): Admission Diagnosis/Problem Admission Diagnosis/Problem Atrial fibrillation with rapid ventricular response Subjective Update: In to see Morena. She is resting comfortably in bed. She remains oriented to person only, but is able to answer some questions appropriately. She reports she is not feeling well today but is unable to articulate why she feels this way. She denies chest pain, palpitations, or dyspnea. She also denies any GI/ complaints. Functional Status: Reports: Pain Controlled, Tolerating Diet, Ambulating, Urinating - Review of Systems General: Reports: No Symptoms. Denies: Fever, Chills HEENT: Reports: No Symptoms. Denies: Sinus Congestion, Sore Throat Pulmonary: Reports: No Symptoms. Denies: Shortness of Breath, Cough Cardiovascular: Reports: No Symptoms. Denies: Chest Pain, Palpitations Gastrointestinal: Reports: No Symptoms. Denies: Abdominal Pain, Constipation, Diarrhea, Difficulty Swallowing, Nausea, Vomiting Genitourinary: Reports: No Symptoms. Denies: Dysuria, Frequency, Burning Musculoskeletal: Reports: No Symptoms. Denies: Joint Pain Skin: Reports: No Symptoms Neurological: Reports: No Symptoms. Denies: Headache Psychiatric: Reports: No Symptoms. Denies: Depression, Anxiety - Patient Data Vitals - Most Recent: Last Vital Signs Temp 98.2 F 02/17/18 12:05 Pulse 90 02/17/18 10:12 Resp 15 02/17/18 12:05 BP 130/78 02/17/18 12:05 Pulse Ox 95 02/17/18 12:05 Weight - Most Recent: 118 lb 3.2 oz I&O - Last 24 Hours: Intake & Output 02/17/18 02/17/18 02/17/18 06:59 14:59 22:59 Intake Total 180 720 Balance 180 720 Lab Results Last 24 Hours: Laboratory Results - last 24 hr 02/16/18 02/16/18 02/16/18 Range/Units 06:44 11:13 16:50 WBC (3.98-10.04) K/mm3 RBC (3.98-5.22) M/mm3 Hgb (11.2-15.7) gm/L Hct (34.1-44.9) % MCV (79.4-94.8) fl MCH (25.6-32.2) pg MCHC (32.2-35.5) g/dl RDW Std Deviation (36.4-46.3) fL Plt Count (182-369) K/mm3 MPV (9.4-12.3) fl Neut % (Auto) (34.0-71.1) % Lymph % (Auto) (19.3-51.7) % Real % (Auto) (4.7-12.5) % Eos % (Auto) (0.7-5.8) Baso % (Auto) (0.1-1.2) % Neut # (Auto) (1.56-6.13) K/mm3 Lymph # (Auto) (1.18-3.74) K/mm3 Real # (Auto) (0.24-0.36) K/mm3 Eos # (Auto) (0.04-0.36) K/mm3 Baso # (Auto) (0.01-0.08) K/mm3 Sodium (136-145) mEq/L Potassium (3.5-5.1) mEq/L Chloride (98-107) mEq/L Carbon Dioxide (21-32) mEq/L Anion Gap (5-15) BUN (7-18) mg/dL Creatinine (0.55-1.02) mg/dL Est Cr Clr Drug Dosing mL/min Estimated GFR (MDRD) (>60) mL/min BUN/Creatinine Ratio (14-18) Glucose (83-115) mg/dL POC Glucose 173 H 237 H 172 H (83-110) mg/dL Calcium (8.5-10.1) mg/dL 02/16/18 02/17/18 02/17/18 Range/Units 21:07 06:10 08:37 WBC 9.10 (3.98-10.04) K/mm3 RBC 4.43 (3.98-5.22) M/mm3 Hgb 11.6 (11.2-15.7) gm/L Hct 36.4 (34.1-44.9) % MCV 82.2 (79.4-94.8) fl MCH 26.2 (25.6-32.2) pg MCHC 31.9 L (32.2-35.5) g/dl RDW Std Deviation 44.3 (36.4-46.3) fL Plt Count 274 (182-369) K/mm3 MPV 10.8 (9.4-12.3) fl Neut % (Auto) 66.4 (34.0-71.1) % Lymph % (Auto) 20.2 (19.3-51.7) % Real % (Auto) 8.2 (4.7-12.5) % Eos % (Auto) 4.6 (0.7-5.8) Baso % (Auto) 0.4 (0.1-1.2) % Neut # (Auto) 6.03 (1.56-6.13) K/mm3 Lymph # (Auto) 1.84 (1.18-3.74) K/mm3 Real # (Auto) 0.75 H (0.24-0.36) K/mm3 Eos # (Auto) 0.42 H (0.04-0.36) K/mm3 Baso # (Auto) 0.04 (0.01-0.08) K/mm3 Sodium (136-145) mEq/L Potassium (3.5-5.1) mEq/L Chloride (98-107) mEq/L Carbon Dioxide (21-32) mEq/L Anion Gap (5-15) BUN (7-18) mg/dL Creatinine (0.55-1.02) mg/dL Est Cr Clr Drug Dosing mL/min Estimated GFR (MDRD) (>60) mL/min BUN/Creatinine Ratio (14-18) Glucose (83-115) mg/dL POC Glucose 272 H 167 H (83-110) mg/dL Calcium (8.5-10.1) mg/dL 02/17/18 02/17/18 Range/Units 08:37 11:22 WBC (3.98-10.04) K/mm3 RBC (3.98-5.22) M/mm3 Hgb (11.2-15.7) gm/L Hct (34.1-44.9) % MCV (79.4-94.8) fl MCH (25.6-32.2) pg MCHC (32.2-35.5) g/dl RDW Std Deviation (36.4-46.3) fL Plt Count (182-369) K/mm3 MPV (9.4-12.3) fl Neut % (Auto) (34.0-71.1) % Lymph % (Auto) (19.3-51.7) % Real % (Auto) (4.7-12.5) % Eos % (Auto) (0.7-5.8) Baso % (Auto) (0.1-1.2) % Neut # (Auto) (1.56-6.13) K/mm3 Lymph # (Auto) (1.18-3.74) K/mm3 Real # (Auto) (0.24-0.36) K/mm3 Eos # (Auto) (0.04-0.36) K/mm3 Baso # (Auto) (0.01-0.08) K/mm3 Sodium 143 (136-145) mEq/L Potassium 3.9 (3.5-5.1) mEq/L Chloride 106 (98-107) mEq/L Carbon Dioxide 26 (21-32) mEq/L Anion Gap 14.9 (5-15) BUN 31 H (7-18) mg/dL Creatinine 1.4 H (0.55-1.02) mg/dL Est Cr Clr Drug Dosing 24.30 mL/min Estimated GFR (MDRD) 36 (>60) mL/min BUN/Creatinine Ratio 22.1 H (14-18) Glucose 251 H (83-115) mg/dL POC Glucose 249 H (83-110) mg/dL Calcium 9.6 (8.5-10.1) mg/dL Med Orders - Current: Current Medications Amiodarone HCl (Cordarone) 800 mg PO BID [facility] Last Admin: 02/17/18 08:06 Dose: 800 mg Apixaban (Eliquis) 2.5 mg PO BID [facility] Last Admin: 02/17/18 08:07 Dose: 2.5 mg Aspirin (Halfprin) 162 mg PO DAILY [facility] Last Admin: 02/17/18 08:06 Dose: 162 mg Calcium Carbonate (Calcium Carbonate/Vitamin D 600 Mg-200 Unit) 1 tab PO BID [facility] Last Admin: 02/17/18 08:07 Dose: 1 tab Cephalexin (Keflex) 500 mg PO Q12H [facility] Last Admin: 02/17/18 08:07 Dose: 500 mg Dextrose/Water (Dextrose 50% In Water) 50 ml IVPUSH ASDIRECTED PRN PRN Reason: Hypoglycemia Furosemide (Lasix) 20 mg PO DAILY [facility] Last Admin: 02/17/18 08:06 Dose: 20 mg Glimepiride (Glimepiride) 4 mg PO WITHBREAKFAST [facility] Last Admin: 02/17/18 06:04 Dose: 4 mg Sodium Chloride (Normal Saline) 1,000 mls @ 75 mls/hr IV ASDIRECTED [facility] Last Infusion: 02/17/18 13:10 Dose: 75 mls/hr Insulin Aspart (Novolog) 0 unit SUBCUT QIDACANDBED [facility]; Protocol Last Admin: 02/17/18 11:26 Dose: 4 units Metoprolol Tartrate (Lopressor) 5 mg IVPUSH Q6H PRN PRN Reason: Tachycardia Last Admin: 02/14/18 13:18 Dose: 5 mg Metoprolol Tartrate (Lopressor) 75 mg PO Q6H [facility] Last Admin: 02/17/18 10:12 Dose: 75 mg Multivitamins (Thera) 1 each PO DAILY [facility] Last Admin: 02/17/18 08:06 Dose: 1 each Potassium Chloride (Klor-Con M20) 40 meq PO DAILY [facility] Last Admin: 02/17/18 08:07 Dose: 40 meq Quetiapine Fumarate (Seroquel) 25 mg PO BID [facility] Last Admin: 02/17/18 08:07 Dose: 25 mg Saccharomyces Boulardii (Florastor) 250 mg PO BID [facility] Last Admin: 02/17/18 08:06 Dose: 250 mg Simvastatin (Zocor) 10 mg PO BEDTIME [facility] Last Admin: 02/16/18 20:00 Dose: 10 mg Sodium Chloride (Saline Flush) 10 ml FLUSH ASDIRECTED PRN PRN Reason: Keep Vein Open Last Admin: 02/11/18 12:55 Dose: 10 ml Tramadol HCl (Ultram) 50 mg PO Q6H PRN PRN Reason: Pain Last Admin: 02/17/18 08:03 Dose: 50 mg Discontinued Medications Amiodarone HCl (Cordarone) 400 mg PO BID [facility] Last Admin: 02/14/18 08:19 Dose: 400 mg Diltiazem HCl (Diltiazem) 10 mg IVPUSH ONETIME ONE Stop: 02/11/18 13:47 Last Admin: 02/11/18 16:20 Dose: 10 mg Diltiazem HCl (Diltiazem) Confirm Administered Dose 125 mg .ROUTE .STK-MED ONE Stop: 02/11/18 16:14 Last Admin: 02/11/18 16:47 Dose: Not Given Enoxaparin Sodium (Lovenox) 55 mg SUBCUT DAILY [facility] Enoxaparin Sodium (Lovenox) 55 mg SUBCUT ONETIME ONE Stop: 02/11/18 21:52 Last Admin: 02/11/18 22:04 Dose: 55 mg Enoxaparin Sodium (Lovenox) 55 mg SUBCUT QPM KIKO Last Admin: 02/12/18 18:02 Dose: 55 mg Furosemide (Lasix) 20 mg IVPUSH DAILY [facility] Last Admin: 02/16/18 09:13 Dose: 20 mg Sodium Chloride (Normal Saline) 1,000 mls @ 150 mls/hr IV ASDIRECTED KIKO Sodium Chloride (Normal Saline) 250 mls @ 999 mls/hr IV .BOLUS ONE Stop: 02/11/18 12:56 Last Admin: 02/11/18 12:55 Dose: 999 mls/hr Diltiazem HCl 125 mg/ Sodium (Chloride) 125 mls @ 10 mls/hr IV TITRATE ONE; Protocol Stop: 02/12/18 02:16 Last Titration: 02/11/18 18:45 Dose: 15 mg/hr, 15 mls/hr Magnesium Sulfate 2 gm/ Premix 50 mls @ 25 mls/hr IV ONETIME ONE Stop: 02/11/18 15:47 Last Admin: 02/11/18 14:33 Dose: 25 mls/hr Amiodarone HCl/Dextrose (Nexterone In Dextrose 360 Mg/200 Ml) 360 mg in 200 mls @ 33.333 mls/hr IV ASDIRECTED KIKO; Protocol Stop: 02/13/18 21:00 Last Admin: 02/13/18 15:42 Dose: 16 mls/hr Amiodarone HCl/Dextrose 150 mg (/ Premix) 100 mls @ 600 mls/hr IV NOW ONE Stop: 02/11/18 20:39 Last Admin: 02/11/18 20:50 Dose: 600 mls/hr Magnesium Sulfate 2 gm/ Premix 50 mls @ 25 mls/hr IV ONETIME ONE Stop: 02/12/18 11:26 Last Admin: 02/12/18 10:31 Dose: 25 mls/hr Amiodarone HCl/Dextrose (Nexterone In Dextrose 150 Mg/100 Ml) 100 mls @ 582.524 mls/hr IV .BOLUS ONE Stop: 02/12/18 09:39 Last Admin: 02/12/18 10:16 Dose: 582.524 mls/hr Amiodarone HCl 300 mg/ (Dextrose/Water) 106 mls @ 300 mls/hr IV .BOLUS ONE Stop: 02/12/18 18:40 Last Admin: 02/12/18 18:57 Dose: 300 mls/hr Magnesium Sulfate 2 gm/ Premix 50 mls @ 25 mls/hr IV ONETIME ONE Stop: 02/15/18 11:56 Last Admin: 02/15/18 10:08 Dose: 25 mls/hr Ceftriaxone Sodium 2 gm/ (Sodium Chloride) 100 mls @ 100 mls/hr IV Q24H [facility] Last Admin: 02/16/18 11:01 Dose: 100 mls/hr Magnesium Sulfate 2 gm/ Premix 50 mls @ 25 mls/hr IV ONETIME ONE Stop: 02/16/18 10:31 Last Admin: 02/16/18 09:10 Dose: 25 mls/hr Insulin Aspart (Novolog) 0 unit SUBCUT QIDACANDBED [facility]; Protocol Last Admin: 02/14/18 12:06 Dose: Not Given [facility] Metoprolol Tartrate (Lopressor) 5 mg IVPUSH Q6H PRN PRN Reason: heart rate >120 Last Admin: 02/12/18 08:25 Dose: 5 mg Metoprolol Tartrate (Lopressor) 50 mg PO Q12HR [facility] Last Admin: 02/13/18 09:47 Dose: 50 mg Metoprolol Tartrate (Lopressor) 25 mg PO TID [facility] Last Admin: 02/15/18 08:52 Dose: 25 mg Metoprolol Tartrate (Lopressor) 50 mg PO TID [facility] Last Admin: 02/16/18 09:12 Dose: 50 mg Quetiapine Fumarate (Seroquel) 50 mg PO BID [facility] Last Admin: 02/15/18 09:52 Dose: Not Given Saccharomyces Boulardii (Florastor) 250 mg PO TID [facility] Last Admin: 02/14/18 20:12 Dose: 250 mg - Exam Quality Assessment: No: Supplemental Oxygen General: Alert, Oriented, Cooperative, No Acute Distress HEENT: Pupils Equal, Pupils Reactive, EOMI, Mucous Membr. Moist/[place] Neck: Supple, Trachea Midline. No: Lymphadenopathy Lungs: Clear to Auscultation, Normal Respiratory Effort Cardiovascular: Regular Rate, Regular Rhythm, No Murmurs GI/Abdominal Exam: Normal Bowel Sounds, Soft, Non-Tender, No Distention (Female) Exam: Deferred Back Exam: Normal Inspection, Decreased Range of Motion Extremities: Normal Inspection, Non-Tender, No Pedal Edema Peripheral Pulses: 1+: Radial (L), Radial (R), Posterior Tibial (L), Posterior Tibial (R), Dorsalis Pedis (L), Dorsalis Pedis (R) Skin: Warm, Dry, Intact Neurological: No New Focal Deficit, Strength Equal Bilateral, Cranial Nerves Intact (grossly) Psy/Mental Status: Alert, Normal Affect, Normal Mood - Problem List Review Problem List Initiated/Reviewed/Updated: Yes - My Orders Last 24 Hours: My Active Orders 02/17/18 09:00 Furosemide [Lasix] 20 mg PO DAILY 02/17/18 12:45 Sodium Chloride 0.9% [Normal Saline] 1,000 ml IV ASDIRECTED 02/17/18 21:00 BASIC METABOLIC PANEL,BMP [CHEM] Routine 02/18/18 05:11 BASIC METABOLIC PANEL,BMP [CHEM] AM CBC WITH AUTO DIFF [HEME] AM 02/19/18 05:11 BASIC METABOLIC PANEL,BMP [CHEM] AM CBC WITH AUTO DIFF [HEME] AM 02/20/18 05:11 BASIC METABOLIC PANEL,BMP [CHEM] AM CBC WITH AUTO DIFF [HEME] AM 02/21/18 05:11 BASIC METABOLIC PANEL,BMP [CHEM] AM CBC WITH AUTO DIFF [HEME] AM 02/22/18 05:11 BASIC METABOLIC PANEL,BMP [CHEM] AM CBC WITH AUTO DIFF [HEME] AM 02/23/18 05:11 BASIC METABOLIC PANEL,BMP [CHEM] AM CBC WITH AUTO DIFF [HEME] AM 02/24/18 05:11 BASIC METABOLIC PANEL,BMP [CHEM] AM CBC WITH AUTO DIFF [HEME] AM - Plan Plan:: Impression: Acute: Narrow Complex Tachycardia * EKG in ED showed atrial flutter --> Unknown if new or chronic * Received Cardizem bolus and drip in ED * Amiodarone drip d/c'd at 21:00 on 02/13/18 with amiodarone 400 mg po BID to be initiated 1 hour prior --> adjusted to amiodarone 800 mg BID * Metoprolol tartrate 25 mg po TID ordered (metoprolol succinate 100 mg po daily at home) --> increased to 75 mg q 6 hr, heart rate improved * Cardiac enzymes negative * She is asymptomatic * TSH 1.743 * She received Lovenox 55 mg SC x 1 --> discussed anticoagulation with patient' s PCP, Dr. Keith, with decision made to initiate NOAC --> will discontinue Lovenox and start Eliquis 2.5 mg po BID with first dose given 02/13/18 in evening HFrEF * 3354 yesterday, up from 1499 and 1103 in ED * 2D Echo report read as EF 25-30%, moderate to severe decreased left ventricle systolic function, and severe left atrial dilation * She denies dyspnea * Order for Lasix 20 mg IV push daily --> discontinued and will order lasix 20 mg po daily for tomorrow and to continue after discharge --> held 02/17/18 with worsening kidney function * Metoprolol tartrate 25 mg po TID ordered (metoprolol succinate 100 mg po daily at home) --> increased to 75 mg q 6 hr * Valsartan/HCTZ currently held with diuresis --> when discharged, patient will remain on Valsartan 160 mg po daily ONLY * Recommend 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-up with hvac design mechanical engineer at discharge Type 2 DM * Glucose range from 115-287 during admission * Continue glimeperide 4 mg po with breakfast * Lantus 6 units q HS held * AccuChecks QID (AC and HS) with Low dose SSI --> increased to medium scale SSI on 02/13/18 * Diabetic diet * Monitor Renal insufficiency * Cr 1.4, eGFR 36 today; Cr 1.2 and eGFR 43 yesterday; Cr 1.0 and eGFR 53 prior with Cr 1.1 and eGFR 47 in ED * Will order IVF NS 250 ml bolus then run at 75 ml/hr * Re-check BMP at 21:00 today * Lasix held * Monitor Weakness, Acute on Chronic * Exacerbated by current medical state * She is a resident of [facility] * PT/OT UTI * Urine culture report: Ecoli * Ordered Rocephin 2 gm IV q 24 hrs --> changed to Keflex 500 mg po q 12 hr Resolved: Hypomagnesemia, resolved * 2.1 today, 1.7 yesterday; 1.4 in ED * Received Mg sulfate 2 gm IV x 1; will order this again * Monitor Chronic: HTN HLD CVA C diff Depression Glaucoma Alzheimer's Dementia Type 2 DM Plan: ICU --> transferred to Med/Surg with Tele today with plan for discharge back to [facility] on 02/18/18 IV Amiodarone, transition to oral Begin oral AV nessa blockers Daily labs Home meds as indicated Mechanical Soft, Diabetic diet DVT prophylaxis: Danita PT/OT Code Status: DNR/DNI PCP: Dr. Jonny Keith LOS > 96 hrs due to prolonged response to treatment
[2018-02-17] MEDS: Simvastatin 10 MG Tab PO SCH (20:19)
[2018-02-18] MEDS: Metoprolol Tartrate 25 MG Tab PO SCH ×2 (04:58→09:02)
[2018-02-18] MEDS: Insulin Aspart 100 Units/ML 3 ML Pen SUBCUT SCH ×2 (06:41→11:59)
[2018-02-18] MEDS: Glimepiride 4 MG Tab PO SCH (06:44)
[2018-02-18] MEDS: Calcium Carbonate/Vitamin D3 600 MG-200 Units Tab PO SCH (08:03)
[2018-02-18] MEDS: Amiodarone 200 MG Tab PO SCH (08:03)
[2018-02-18] MEDS: Cephalexin 500 MG Cap PO SCH (08:03)
[2018-02-18] MEDS: Aspirin 81 MG Tab.EC PO SCH (08:03)
[2018-02-18] MEDS: Potassium Chloride 20 MEQ Tab.ER PO SCH (08:03)
[2018-02-18] MEDS: QUEtiapine 25 MG Tab PO SCH (08:04)
[2018-02-18] MEDS: Saccharomyces Boulardii (Probiotic) 250 MG Cap PO SCH (08:04)
[2018-02-18] MEDS: Apixaban 5 MG Tab PO SCH (08:04)
[2018-02-18] MEDS: Multivitamins,Therapeutic Tab PO SCH (08:04)
[2018-02-18] MEDS: traMADol 50 MG Tab PO PRN (08:29)
[2018-02-18 09:03] VITALS: BP 139/81
--- NOTE | 2018-02-18 10:16 | PCM.DCSUM1 ---
Discharge Summary - Hospital Course Free Text/Narrative:: 87 year old female with A flutter/junctional tachycardia (not on digoxin) was hemodynamically stable. Required Amiodarone drip, and a very slow taper to maintain appropriate heart rate at rest. She had Toprol as a home med, this was stopped to allow greater flexibility in a beta sussy; she required lopressor 75 mg QID along with Amiodarone 800 mg BID before converting to sinus rhythm. Home meds were resumed except the beta sussy as mentioned. a 2D echo was performed which documented a depressed systolic function, LVEF 30% likely tachycardia mediated. The patient was not SOB and experienced no CP during the elevated HR. A slow taper for the Amiodarone has been provided; the patient also has a Holter monitor for 48 hours. The lopressor should be held if the HR<70. She returns to [facility] with also an improved affect, her Seroquel was reduced to 25 mg BID. Diagnosis A flutter, 2:1 Acute UTI Dementia Nonischemic cardiomyopathy Follow up PCP 1-2 weeks Cardiology HPI Initial Comments: 87 year old female residing at [facility] presents with rapid heart rate; ECG documents NCT, likely A Flutter which had minimal response to Cardizem bolus in the ED. Patient complained of malaise and generalized weakness. She admitted to decreased in appetite; denied CP, SOB, presyncopal or syncopal episode. She will be admitted to the ICU; code status is DNR/DNI. Diagnosis: Stroke: No - Discharge Data Discharge Date: 02/18/18 Discharge Disposition: DC/Tfer to SNF 03 Condition: Good - Discharge Diagnosis/Problem(s) (1) Atrial flutter by electrocardiogram SNOMED Code(s): 416689491 ICD Code: I48.92 - UNSPECIFIED ATRIAL FLUTTER Status: Acute (2) Dementia SNOMED Code(s): 23533937 ICD Code: F03.90 - UNSPECIFIED DEMENTIA WITHOUT BEHAVIORAL DISTURBANCE Status: Chronic Qualifiers: Dementia type: Alzheimer's disease Alzheimer's disease onset: late-onset Dementia behavioral disturbance: with behavioral disturbance Qualified Code(s) : G30.1 - Alzheimer's disease with late onset (3) HTN, Benign hypertension SNOMED Code(s): 58757786 ICD Code: I10 - ESSENTIAL (PRIMARY) HYPERTENSION Status: Chronic (4) Cardiomyopathy SNOMED Code(s): 16092460 ICD Code: I42.9 - CARDIOMYOPATHY, UNSPECIFIED Status: Chronic (5) UTI, Urinary tract infectious disease SNOMED Code(s): 76703706 ICD Code: N39.0 - URINARY TRACT INFECTION, SITE NOT SPECIFIED Status: Acute Onset Date: 09/09/14 - Patient Summary/Data Consults: Consultations 02/13/18 11:38 Consult to Physical Therapy [PT Evaluation and Treatment] [CONS] Routine 02/13/18 11:39 Consult to Occupational Therapy [OT Evaluation and Treatment] [CONS] Routine 02/13/18 15:51 Consult to Spiritual Care [CONS] Routine - Patient Instructions Diet: Usual Diet as Tolerated Activity: As Tolerated Driving: Do Not Drive Showering/Bathing: May Shower Notify Provider of: Fever, Increased Pain, Nausea and/or Vomiting - Discharge Plan Prescriptions/Med Rec: Amiodarone [Cordarone] 800 mg PO BID #168 tablet Apixaban [Eliquis] 2.5 mg PO BID #60 tablet Cephalexin [Keflex] 500 mg PO Q12H #10 cap Metoprolol Tartrate [Lopressor] 75 mg PO Q6H #180 tablet QUEtiapine [SEROquel] 25 mg PO BID #60 tablet Home Medications: Home Meds Calcium Carb/Vitamin D3/Vit K1 [Viactiv Soft Chew] 1 each PO BID 12/28/13 [ History] Fish Oil/Colden-3 Fatty Acids [Fish Oil 1,000 MG] 1,000 each PO BID 12/28/13 [ History] Glimepiride 4 mg PO DAILY 12/28/13 [History] Lutein/Minerals/Vit A,C & E [Ocuvite] 1 tab PO DAILY 12/28/13 [History] Pravastatin [Pravachol] 20 mg PO BEDTIME 12/28/13 [History] Triamterene/Hydrochlorothiazid [Triamterene-HCTZ 37.5-25 MG] 0.5 tab PO DAILY [History] Valsartan/Hydrochlorothiazide [Diovan HCTZ 160-25 MG] 160 mg PO DAILY 12/28/13 [ History] Acetaminophen [Tylenol] 650 mg PO BID 09/09/14 [History] Aspirin [Ecotrin] 162 mg PO DAILY 09/09/14 [History] Multivitamin [Multi-Vitamin Daily] 1 tab PO DAILY 09/09/14 [History] Insulin Glarg,Human.Rec.Analog [LantUS Solostar] 6 units SUBCUT BEDTIME [History] Linagliptin [Tradjenta] 5 mg PO DAILY 06/24/16 [History] Lactobacillus Acidophilus [Acidophilus] 1 tab PO TID 10/02/17 [History] Cyanocobalamin (Vitamin B-12) [Vitamin B-12] 500 mcg PO DAILY 02/11/18 [History] metFORMIN [Glucophage XR] 1,000 mg PO BID 02/11/18 [History] traMADol [Ultram] 50 mg PO Q6H PRN 02/11/18 [History] Amiodarone [Cordarone] 800 mg PO BID #168 tablet 02/18/18 [Rx] Apixaban [Eliquis] 2.5 mg PO BID #60 tablet 02/18/18 [Rx] Cephalexin [Keflex] 500 mg PO Q12H #10 cap 02/18/18 [Rx] Metoprolol Tartrate [Lopressor] 75 mg PO Q6H #180 tablet 02/18/18 [Rx] QUEtiapine [SEROquel] 25 mg PO BID #60 tablet 02/18/18 [Rx] Other Amb Orders: BASIC METABOLIC PANEL,BMP [CHEM] Time Frame: 02/22/18, Facility: [facility], Location: Guest Services Lead [facility] MAGNESIUM [CHEM] Time Frame: 02/22/18, Facility: [facility], Location: Guest Services Lead Unit [facility] Patient Handouts: Holter Monitoring, Atrial Flutter, Urinary Tract Infection, Adult, [id number] Forms: ED Department Discharge Referrals: Jonny Keith MD [Primary Care Provider] - - Discharge Summary/Plan Comment DC Time >30 min.: No - General Info Date of Service: 02/11/18 Functional Status: Reports: Tolerating Diet, Urinating - Review of Systems General: Reports: No Symptoms HEENT: Reports: No Symptoms Pulmonary: Reports: No Symptoms Cardiovascular: Reports: No Symptoms Gastrointestinal: Reports: No Symptoms Genitourinary: Reports: No Symptoms Musculoskeletal: Reports: No Symptoms Skin: Reports: No Symptoms Neurological: Reports: No Symptoms Psychiatric: Reports: No Symptoms - Patient Data Vitals - Most Recent: Last Vital Signs Temp 36.6 C 02/18/18 09:00 Pulse 85 02/18/18 09:02 Resp 16 02/18/18 09:00 BP 139/81 02/18/18 09:02 Pulse Ox 95 02/18/18 09:00 Weight - Most Recent: 53.977 kg I&O - Last 24 hours: Intake & Output 02/17/18 02/18/18 02/18/18 22:59 06:59 14:59 Intake Total 436 1066 Balance 436 1066 Lab Results - Last 24 hrs: Laboratory Results - last 24 hr 02/17/18 02/17/18 02/17/18 Range/Units 08:37 08:37 11:22 WBC (3.98-10.04) K/mm3 RBC (3.98-5.22) M/mm3 Hgb (11.2-15.7) gm/L Hct (34.1-44.9) % MCV (79.4-94.8) fl MCH (25.6-32.2) pg MCHC (32.2-35.5) g/dl RDW Std Deviation (36.4-46.3) fL Plt Count (182-369) K/mm3 MPV (9.4-12.3) fl Neut % (Auto) (34.0-71.1) % Lymph % (Auto) (19.3-51.7) % [place] % (Auto) (4.7-12.5) % Eos % (Auto) (0.7-5.8) Baso % (Auto) (0.1-1.2) % Neut # (Auto) (1.56-6.13) K/mm3 Lymph # (Auto) (1.18-3.74) K/mm3 [place] # (Auto) (0.24-0.36) K/mm3 Eos # (Auto) (0.04-0.36) K/mm3 Baso # (Auto) (0.01-0.08) K/mm3 Sodium 143 (136-145) mEq/L Potassium 3.9 (3.5-5.1) mEq/L Chloride 106 (98-107) mEq/L Carbon Dioxide 26 (21-32) mEq/L Anion Gap 14.9 (5-15) BUN 31 H (7-18) mg/dL Creatinine 1.4 H (0.55-1.02) mg/dL Est Cr Clr Drug Dosing 24.30 mL/min Estimated GFR (MDRD) 36 (>60) mL/min BUN/Creatinine Ratio 22.1 H (14-18) Glucose 251 H (83-115) mg/dL POC Glucose 249 H (83-110) mg/dL Calcium 9.6 (8.5-10.1) mg/dL Magnesium 2.1 (1.8-2.4) mg/dl 02/17/18 02/17/18 02/17/18 Range/Units 17:35 20:27 21:08 WBC (3.98-10.04) K/mm3 RBC (3.98-5.22) M/mm3 Hgb (11.2-15.7) gm/L Hct (34.1-44.9) % MCV (79.4-94.8) fl MCH (25.6-32.2) pg MCHC (32.2-35.5) g/dl RDW Std Deviation (36.4-46.3) fL Plt Count (182-369) K/mm3 MPV (9.4-12.3) fl Neut % (Auto) (34.0-71.1) % Lymph % (Auto) (19.3-51.7) % [place] % (Auto) (4.7-12.5) % Eos % (Auto) (0.7-5.8) Baso % (Auto) (0.1-1.2) % Neut # (Auto) (1.56-6.13) K/mm3 Lymph # (Auto) (1.18-3.74) K/mm3 [place] # (Auto) (0.24-0.36) K/mm3 Eos # (Auto) (0.04-0.36) K/mm3 Baso # (Auto) (0.01-0.08) K/mm3 Sodium 143 (136-145) mEq/L Potassium 4.3 (3.5-5.1) mEq/L Chloride 107 (98-107) mEq/L Carbon Dioxide 25 (21-32) mEq/L Anion Gap 15.3 H (5-15) BUN 30 H (7-18) mg/dL Creatinine 1.3 H (0.55-1.02) mg/dL Est Cr Clr Drug Dosing 26.17 mL/min Estimated GFR (MDRD) 39 (>60) mL/min BUN/Creatinine Ratio 23.1 H (14-18) Glucose 226 H (83-115) mg/dL POC Glucose 207 H 204 H (83-110) mg/dL Calcium 9.3 (8.5-10.1) mg/dL Magnesium (1.8-2.4) mg/dl 02/18/18 02/18/18 02/18/18 Range/Units 05:45 05:45 06:40 WBC 7.95 (3.98-10.04) K/mm3 RBC 4.36 (3.98-5.22) M/mm3 Hgb 11.2 (11.2-15.7) gm/L Hct 36.3 (34.1-44.9) % MCV 83.3 (79.4-94.8) fl MCH 25.7 (25.6-32.2) pg MCHC 30.9 L (32.2-35.5) g/dl RDW Std Deviation 46.2 (36.4-46.3) fL Plt Count 268 (182-369) K/mm3 MPV 10.9 (9.4-12.3) fl Neut % (Auto) 58.8 (34.0-71.1) % Lymph % (Auto) 25.9 (19.3-51.7) % [place] % (Auto) 9.9 (4.7-12.5) % Eos % (Auto) 4.9 (0.7-5.8) Baso % (Auto) 0.4 (0.1-1.2) % Neut # (Auto) 4.67 (1.56-6.13) K/mm3 Lymph # (Auto) 2.06 (1.18-3.74) K/mm3 [place] # (Auto) 0.79 H (0.24-0.36) K/mm3 Eos # (Auto) 0.39 H (0.04-0.36) K/mm3 Baso # (Auto) 0.03 (0.01-0.08) K/mm3 Sodium 146 H (136-145) mEq/L Potassium 4.2 (3.5-5.1) mEq/L Chloride 109 H (98-107) mEq/L Carbon Dioxide 25 (21-32) mEq/L Anion Gap 16.2 H (5-15) BUN 29 H (7-18) mg/dL Creatinine 1.1 H (0.55-1.02) mg/dL Est Cr Clr Drug Dosing 30.93 mL/min Estimated GFR (MDRD) 47 (>60) mL/min BUN/Creatinine Ratio 26.4 H (14-18) Glucose 154 H (83-115) mg/dL POC Glucose 186 H (83-110) mg/dL Calcium 9.0 (8.5-10.1) mg/dL Magnesium 2.0 (1.8-2.4) mg/dl Med Orders - Current: Current Medications Amiodarone HCl (Cordarone) 800 mg PO BID [facility] Last Admin: 02/18/18 08:03 Dose: 800 mg Apixaban (Eliquis) 2.5 mg PO BID [facility] Last Admin: 02/18/18 08:04 Dose: 2.5 mg Aspirin (Halfprin) 162 mg PO DAILY [facility] Last Admin: 02/18/18 08:03 Dose: 162 mg Calcium Carbonate (Calcium Carbonate/Vitamin D 600 Mg-200 Unit) 1 tab PO BID [facility] Last Admin: 02/18/18 08:03 Dose: 1 tab Cephalexin (Keflex) 500 mg PO Q12H [facility] Last Admin: 02/18/18 08:03 Dose: 500 mg Dextrose/Water (Dextrose 50% In Water) 50 ml IVPUSH ASDIRECTED PRN PRN Reason: Hypoglycemia Glimepiride (Glimepiride) 4 mg PO WITHBREAKFAST [facility] Last Admin: 02/18/18 06:44 Dose: 4 mg Sodium Chloride (Normal Saline) 1,000 mls @ 75 mls/hr IV ASDIRECTED [facility] Last Admin: 02/17/18 23:21 Dose: 75 mls/hr Insulin Aspart (Novolog) 0 unit SUBCUT QIDACANDBED [facility]; Protocol Last Admin: 02/18/18 06:41 Dose: 2 units Metoprolol Tartrate (Lopressor) 5 mg IVPUSH Q6H PRN PRN Reason: Tachycardia Last Admin: 02/14/18 13:18 Dose: 5 mg Metoprolol Tartrate (Lopressor) 75 mg PO Q6H [facility] Last Admin: 02/18/18 09:02 Dose: 75 mg Multivitamins (Thera) 1 each PO DAILY [facility] Last Admin: 02/18/18 08:04 Dose: 1 each Potassium Chloride (Klor-Con M20) 40 meq PO DAILY [facility] Last Admin: 02/18/18 08:03 Dose: 40 meq Quetiapine Fumarate (Seroquel) 25 mg PO BID [facility] Last Admin: 02/18/18 08:04 Dose: 25 mg Saccharomyces Boulardii (Florastor) 250 mg PO BID [facility] Last Admin: 02/18/18 08:04 Dose: 250 mg Simvastatin (Zocor) 10 mg PO BEDTIME [facility] Last Admin: 02/17/18 20:19 Dose: 10 mg Sodium Chloride (Saline Flush) 10 ml FLUSH ASDIRECTED PRN PRN Reason: Keep Vein Open Last Admin: 02/11/18 12:55 Dose: 10 ml Tramadol HCl (Ultram) 50 mg PO Q6H PRN PRN Reason: Pain Last Admin: 02/18/18 08:29 Dose: 50 mg Discontinued Medications Amiodarone HCl (Cordarone) 400 mg PO BID [facility] Last Admin: 02/14/18 08:19 Dose: 400 mg Diltiazem HCl (Diltiazem) 10 mg IVPUSH ONETIME ONE Stop: 02/11/18 13:47 Last Admin: 02/11/18 16:20 Dose: 10 mg Diltiazem HCl (Diltiazem) Confirm Administered Dose 125 mg .ROUTE .STK-MED ONE Stop: 02/11/18 16:14 Last Admin: 02/11/18 16:47 Dose: Not Given Enoxaparin Sodium (Lovenox) 55 mg SUBCUT DAILY [facility] Enoxaparin Sodium (Lovenox) 55 mg SUBCUT ONETIME ONE Stop: 02/11/18 21:52 Last Admin: 02/11/18 22:04 Dose: 55 mg Enoxaparin Sodium (Lovenox) 55 mg SUBCUT QPM [facility] Last Admin: 02/12/18 18:02 Dose: 55 mg Furosemide (Lasix) 20 mg IVPUSH DAILY [facility] Last Admin: 02/16/18 09:13 Dose: 20 mg Furosemide (Lasix) 20 mg PO DAILY [facility] Last Admin: 02/17/18 08:06 Dose: 20 mg Sodium Chloride (Normal Saline) 1,000 mls @ 150 mls/hr IV ASDIRECTED [facility] Sodium Chloride (Normal Saline) 250 mls @ 999 mls/hr IV .BOLUS ONE Stop: 02/11/18 12:56 Last Admin: 02/11/18 12:55 Dose: 999 mls/hr Diltiazem HCl 125 mg/ Sodium (Chloride) 125 mls @ 10 mls/hr IV TITRATE ONE; Protocol Stop: 02/12/18 02:16 Last Titration: 02/11/18 18:45 Dose: 15 mg/hr, 15 mls/hr Magnesium Sulfate 2 gm/ Premix 50 mls @ 25 mls/hr IV ONETIME ONE Stop: 02/11/18 15:47 Last Admin: 02/11/18 14:33 Dose: 25 mls/hr Amiodarone HCl/Dextrose (Nexterone In Dextrose 360 Mg/200 Ml) 360 mg in 200 mls @ 33.333 mls/hr IV ASDIRECTED [facility]; Protocol Stop: 02/13/18 21:00 Last Admin: 02/13/18 15:42 Dose: 16 mls/hr Amiodarone HCl/Dextrose 150 mg (/ Premix) 100 mls @ 600 mls/hr IV NOW ONE Stop: 02/11/18 20:39 Last Admin: 02/11/18 20:50 Dose: 600 mls/hr Magnesium Sulfate 2 gm/ Premix 50 mls @ 25 mls/hr IV ONETIME ONE Stop: 02/12/18 11:26 Last Admin: 02/12/18 10:31 Dose: 25 mls/hr Amiodarone HCl/Dextrose (Nexterone In Dextrose 150 Mg/100 Ml) 100 mls @ 582.524 mls/hr IV .BOLUS ONE Stop: 02/12/18 09:39 Last Admin: 02/12/18 10:16 Dose: 582.524 mls/hr Amiodarone HCl 300 mg/ (Dextrose/Water) 106 mls @ 300 mls/hr IV .BOLUS ONE Stop: 02/12/18 18:40 Last Admin: 02/12/18 18:57 Dose: 300 mls/hr Magnesium Sulfate 2 gm/ Premix 50 mls @ 25 mls/hr IV ONETIME ONE Stop: 02/15/18 11:56 Last Admin: 02/15/18 10:08 Dose: 25 mls/hr Ceftriaxone Sodium 2 gm/ (Sodium Chloride) 100 mls @ 100 mls/hr IV Q24H [facility] Last Admin: 02/16/18 11:01 Dose: 100 mls/hr Magnesium Sulfate 2 gm/ Premix 50 mls @ 25 mls/hr IV ONETIME ONE Stop: 02/16/18 10:31 Last Admin: 02/16/18 09:10 Dose: 25 mls/hr Insulin Aspart (Novolog) 0 unit SUBCUT QIDACANDBED [facility]; Protocol Last Admin: 02/14/18 12:06 Dose: Not Given [facility]op[facility]ol Succ[facility] ([facility]l) [facility] Metoprolol Tartrate (Lopressor) 5 mg IVPUSH Q6H PRN PRN Reason: heart rate >120 Last Admin: 02/12/18 08:25 Dose: 5 mg Metoprolol Tartrate (Lopressor) 50 mg PO Q12HR [facility] Last Admin: 02/13/18 09:47 Dose: 50 mg Metoprolol Tartrate (Lopressor) 25 mg PO TID [facility] Last Admin: 02/15/18 08:52 Dose: 25 mg Metoprolol Tartrate (Lopressor) 50 mg PO TID [facility] Last Admin: 02/16/18 09:12 Dose: 50 mg Quetiapine Fumarate (Seroquel) 50 mg PO BID [facility] Last Admin: 02/15/18 09:52 Dose: Not Given Saccharomyces Boulardii (Florastor) 250 mg PO TID [facility] Last Admin: 02/14/18 20:12 Dose: 250 mg - Exam Quality Assessment: Reports: DVT Prophylaxis General: Reports: Alert, Oriented, No Acute Distress HEENT: Reports: Pupils Equal, Pupils Reactive, EOMI Neck: Reports: Trachea Midline, No JVD Lungs: Reports: Normal Respiratory Effort Cardiovascular: Reports: Regular Rate, Regular Rhythm GI/Abdominal Exam: Normal Bowel Sounds, Soft, Non-Tender, No Organomegaly, No Distention (Female) Exam: Deferred Rectal (Female) Exam: Deferred Back Exam: Reports: Normal Inspection Extremities: Normal Inspection, Non-Tender, Normal Capillary Refill Skin: Reports: Warm, Dry Neurological: Reports: No New Focal Deficit, Normal Speech Psy/Mental Status: Reports: Alert, Normal Affect, Normal Mood
== END 2018-02-18 14:45 | DRG 308 ==
LOC: JD.ED 11:53 → JD.ICU 17:46
PROVIDERS: ADMIT Internal Medicine Cardiovascular Disease; ATTEND Internal Medicine Cardiovascular Disease
DX: I48.92 Unspecified atrial flutter (principal); I50.23 Acute on chronic systolic (congestive) heart failure; N39.0 Urinary tract infection, site not specified; I10 Essential (primary) hypertension; E78.5 Hyperlipidemia, unspecified; F32.9 Major depressive disorder, single episode, unspecified; I42.9 Cardiomyopathy, unspecified; I11.0 Hypertensive heart disease with heart failure; N28.9 Disorder of kidney and ureter, unspecified; R53.1 Weakness; E83.42 Hypomagnesemia; B96.20 Unspecified Escherichia coli [E. coli] as the cause of diseases classified elsewhere; E78.00 Pure hypercholesterolemia, unspecified; R53.81 Other malaise; M81.0 Age-related osteoporosis without current pathological fracture; R41.0 Disorientation, unspecified; R00.0 Tachycardia, unspecified; G30.9 Alzheimer's disease, unspecified; F02.80 Dementia in other diseases classified elsewhere, unspecified severity, without behavioral disturbance, psychotic disturbance, mood disturbance, and anxiety; E11.9 Type 2 diabetes mellitus without complications; H40.9 Unspecified glaucoma; Z66 Do not resuscitate; Z79.82 Long term (current) use of aspirin; Z79.899 Other long term (current) drug therapy; Z79.4 Long term (current) use of insulin; Z86.73 Personal history of transient ischemic attack (TIA), and cerebral infarction without residual deficits
CPT/HCPCS: 36415; 71045; 80053; 83735; 84443; 84484; 85007; 85027; 85379; 86140; 86738; 93005; 96361; 96365; 96367; 96376; 99285; J3490 ×2; J7030; J7040; J7050; 80048; 81001; 82962; 83880; 85025; 87086; 87088; 87186; 87641; 93306; 97110-GP; 97162-GP; 97167-GO; 97530-GO; 97530-GP; 99222; 99231; 99232; 99238; 99284; A9270-GY; J0282; J0696; J1650; J1815-GY; J3475; J7060